=== PATIENT | male | born 1990 | race Caucasian/White ===

== ENCOUNTER → 2020-09-25 | Outpatient (CLI) | payer OTHER, SELFPAY ==
[2013-10-08 16:20] VITALS: BMI 24.7
== END | disposition home or self-care (01) ==
LOC: LABSPEC 14:18
PROVIDERS: Visit Provider Family Medicine
DX: R09.89 Other specified symptoms and signs involving the circulatory and respiratory systems (principal)
CPT/HCPCS: 87635; U0003

== ENCOUNTER → 2020-11-22 09:14 | Outpatient (CLI) | payer OTHER, SELFPAY ==
[2013-10-08 16:20] VITALS: BMI 24.7
[2020-11-22 10:41] LABS: Cholesterol 184 mg/dL (200); High Density Lipoprotein 54 mg/dL; Triglycerides 93 mg/dL; Very Low Density Lipoprotein 19 mg/dL (5-40)
== END ==
PROVIDERS: PCP Family Medicine; Referring Provider Family Medicine; Visit Provider Family Medicine
DX: Z13.220 Encounter for screening for lipoid disorders (principal)
CPT/HCPCS: 36415; 80061

== ENCOUNTER 2022-07-31 10:06 | Outpatient (CLI) | payer OTHER, SELFPAY ==
--- NOTE | 2022-07-31 10:16 | RAD_ITS ---
INDICATION: ABDOMINAL BLOATING EXAMINATION/TECHNIQUE: X-RAY - XR Abdomen Series W/ Chest 1 View COMPARISON: None FINDINGS: --Chest: LINES/DEVICES: None. LUNGS: No consolidation, edema or effusion. No pneumothorax. MEDIASTINUM AND CARDIOVASCULAR STRUCTURES: Cardiac silhouette not enlarged. Central airways and mediastinal contour are unremarkable. BONES AND SOFT TISSUES: No acute findings. --Abdomen: BOWEL GAS PATTERN: Non-obstructive. No bowel or stomach distention. Moderate amount fecal retention. FREE AIR: None visualized. ORGANOMEGALY: Not seen. CALCIFICATIONS: No abnormal calcifications observed. BONES AND SOFT TISSUES: No acute findings. RAD/Acute Abdomen Inc Chest IMPRESSION: No acute abnormalities in the chest or abdomen. Moderate amount of retained stool in the colon. Electronically Signed: Taye Leahy MD at 18:25 EDT ,
[2022-07-31 12:16] LABS: Absolute Lymphocyte Count 1.84 X10^3/uL (0.83-4.51); Absolute Neutrophil Count 3.5 X10^3/uL (2.0-7.7); Basophil# 0.05 X10^3/uL; Basophil% 0.8 % (0-1); Eosinophils% 1.7 % (0-5); Erythrocyte Sedimentation Rate < 1 mm/hr (0-20); Hematocrit 45.7 % (40-54); Hemoglobin 16.2 g/dL (13.0-16.5); Lymphocyte # 1.84 X10^3/ul (0.83-4.51); Lymphocyte % 30.4 % (19-41); Mean Corp Hgb Conc 35.4 g/dL (32-36); Mean Corpuscular Hgb 31.3 pg (27.0-32.0); Mean Corpuscular Volume 88.4 fL (80-94); Mean Platelet Vol. 10.1 fl (6.2-12.0); Monocyte# 0.53 X10^3/uL; Monocyte% 8.7 % (0-10); NRBC Flagged by Analyzer 0 % (0-5); Neutrophil # 3.53 X10^3/uL (2.7-7.7); Neutrophil % 58.2 % (47-70); Platelet Count 264 K/mm3 (150-450); RBC Distribution Width CV 12.3 % (11.6-14.6); RBC Distribution Width SD 40.2 fl (35.1-43.9); Red Blood Count 5.17 M/mm3 (4.6-6.2); White Blood Count 6.1 K/mm3 (4.4-11.0)
[2022-07-31 12:52] LABS: ALB/GLOB Ratio 1.1 RATIO (0.9-2.4); AST(SGOT) 12 U/L (15-37); Alanine Aminotransfer ALT/SGPT 26 U/L (16-61); Albumin, Serum 4.2 g/dL (3.2-5.0); Alkaline Phosphatase 56 U/L (45-117); Anion Gap 5 (5-15); BUN 18 mg/dL (7-18); BUN/Creat Ratio 15.5 RATIO (10-20); Chloride 103 mmol/L (98-107); Creatinine, Serum 1.16 mg/dL (0.70-1.30); EST Glomerular Filtration Rate 76 mL/min (>60); Est Glom Filt Rate - Afr Amer 92 mL/min (>60); Globulin 3.7 g/dL (2.2-4.2); Glucose 90 mg/dL (74-106); Protein, Total 7.9 g/dL (6.4-8.2); Sodium Level 138 mmol/L (136-145); Thyroid Stim Hormone (TSH) 0.89 uIU/mL (0.358-3.74)
[2022-08-03 15:08] LABS: Endomysial Antibody IgA Negative (Negative); Immunoglobulin A 285 mg/dL (90-386)
[2022-08-04 08:56] LABS: Deamidated Gliadin IgA 4 units (0-19); Deamidated Gliadin IgG 7 units (0-19); t-Transglutaminase IgA <2 U/mL (0-3)
[2022-08-08 00:08] LABS: Beef <0.10 kU/L (Class 0); Corn <0.10 kU/L (Class 0); Egg, Whole <0.10 kU/L (Class 0); Milk (Cow) <0.10 kU/L (Class 0); Peanut <0.10 kU/L (Class 0); Pork <0.10 kU/L (Class 0); Soybean <0.10 kU/L (Class 0); Wheat <0.10 kU/L (Class 0)
[2022-08-08 12:16] LABS: Chocolate <0.10 kU/L (Class 0)
== END 2022-07-31 23:59 | disposition home or self-care (01) ==
PROVIDERS: PCP Family Medicine; Referring Provider Family Medicine; Visit Provider Family Medicine
DX: R14.0 Abdominal distension (gaseous) (principal)
CPT/HCPCS: 36415; 74022; 80053; 82784; 83516; 84443; 85025; 85652; 86003; 86005; 86255; 86677

== ENCOUNTER → 2022-08-01 | Outpatient (CLI) | payer OTHER, SELFPAY ==
[2022-08-05 08:55] LABS: Pancreatic Elastase, Fecal 417 (>200)
== END | disposition home or self-care (01) ==
PROVIDERS: PCP Family Medicine; Referring Provider Family Medicine; Visit Provider Family Medicine
DX: R14.0 Abdominal distension (gaseous) (principal); R10.13 Epigastric pain
CPT/HCPCS: 82653

== ENCOUNTER → 2023-03-15 | Outpatient (CLI) | payer OTHER, SELFPAY ==
--- NOTE | 2023-03-15 10:58 | ECHOD_ITS ---
Reason For Study: MVP Procedure This was a 2D Doppler, Color Flow transthoracic echocardiogram. Exam performed in department. Left Ventricle Normal LV size. Left ventricular systolic function is normal. The estimated ejection fraction is 60 %. Normal diastology for age. No regional wall motion abnormalities noted. Right Ventricle Normal RV size. Normal systolic function. Atria Normal left atrium. Normal right atrium. Mitral Valve Mild mitral valve prolapse. Tricuspid Valve Normal tricuspid valve. Aortic Valve Trisinus/trileaflet aortic valve. Pulmonic Valve Normal pulmonic valve. Great Vessels Normal aortic root. The pulmonary artery is normal size. Normal inferior vena cava. Pericardium/Pleural No pericardial effusion. MMode/2D Measurements & Calculations LVIDd: 4.7 cm IVSd: 0.75 cm Ao root diam: 3.4 cm LVIDs: 3.2 cm LVPWd: 0.85 cm LA dimension: 3.1 cm RVDd: 4.3 cm FS: 32.0 % LAV(MOD-bp): 44.4 ml LA A4 area: 15.4 cm2 RA A4 area: 16.5 cm2 LAV(MOD-bp) Indexed: 22.2 ml/m2 LAV(MOD-sp2): 49.6 ml LAV(MOD-sp4): 38.8 ml Time Measurements MV dec time: 0.18 sec Doppler Measurements & Calculations MV E max miles: 90.0 cm/sec Lat Peak E' Miles: 19.5 cm/sec Med Peak E' Miles: 16.5 cm/sec MV A max miles: 47.7 cm/sec E/E' lat: 4.6 E/E' med: 5.4 MV E/A: 1.9 MV V2 max: 100.0 cm/sec MV P1/2t max miles: 100.0 cm/sec Ao V2 max: 121.6 cm/sec MV max P.0 mmHg MV P1/2t: 67.8 msec Ao max P.9 mmHg MV V2 mean: 52.8 cm/sec MV dec slope: 432.2 cm/sec2 Ao V2 mean: 84.4 cm/sec MV mean P.3 mmHg MVA(P1/2t): 3.2 cm2 Ao mean P.2 mmHg MV V2 VTI: 31.6 cm Ao V2 VTI: 28.2 cm AV (velocity ratio): 0.84 LV V1 max: 110.1 cm/sec PA V2 max: 100.6 cm/sec LV V1 max P.9 mmHg PA V2 mean: 67.7 cm/sec LV V1 mean P.6 mmHg LV V1 mean: 74.6 cm/sec LV V1 VTI: 23.6 cm ECHO/Echo Complete Interpretation Summary Normal LV size. Left ventricular systolic function is normal. The estimated ejection fraction is 60 %. Mild mitral valve prolapse. Ordering Physician: Daniel Mejia Referring Physician: Daniel Mejia Performed By: Jeremy Spivey RCS
== END | disposition home or self-care (01) ==
LOC: CVS 10:57
PROVIDERS: PCP Family Medicine; Referring Provider Family Medicine; Visit Provider Family Medicine
DX: I34.1 Nonrheumatic mitral (valve) prolapse (principal)
CPT/HCPCS: 93306

== ENCOUNTER → 2023-10-05 | Outpatient (CLI) | payer OTHER, SELFPAY ==
[2023-10-05 10:36] LABS: Anion Gap 1 (5-15); BUN 17 mg/dL (7-18); BUN/Creat Ratio 15.3 RATIO (10-20); Calcium,Total 8.8 mg/dL (8.5-10.1); Chloride 107 mmol/L (98-107); Cholesterol 181 mg/dL (200); Creatinine, Serum 1.11 mg/dL (0.70-1.30); EST Glomerular Filtration Rate 80 mL/min (>60); Est Glom Filt Rate - Afr Amer 97 mL/min (>60); Glucose 93 mg/dL (74-106); High Density Lipoprotein 56 mg/dL; Magnesium 2.4 mg/dL (1.6-2.6); Potassium 4.4 mmol/L (3.5-5.1); Sodium Level 140 mmol/L (136-145); Thyroid Stim Hormone (TSH) 0.94 uIU/mL (0.358-3.74); Triglycerides 66 mg/dL; Very Low Density Lipoprotein 13 mg/dL (5-40)
== END | disposition home or self-care (01) ==
LOC: MFPLAB 08:48
PROVIDERS: PCP Family Medicine; Visit Provider Family Medicine
DX: Z13.1 Encounter for screening for diabetes mellitus (principal); Z13.220 Encounter for screening for lipoid disorders; R00.2 Palpitations
CPT/HCPCS: 36415; 80048; 80061; 83735; 84443

== ENCOUNTER → 2025-08-29 | Outpatient (CLI) | payer OTHER, SELFPAY ==
[2025-08-29 18:22] LABS: Hematocrit 40.9 % (40-54); Hemoglobin 15.1 g/dL (13.0-16.5); Immature Granulocytes Count 0.010 X10^3/uL (0.0-0.0); Mean Corp Hgb Conc 36.9 g/dL (32-36); Mean Corpuscular Volume 84.5 fL (80-94); Mean Platelet Vol. 10.2 fl (6.2-12.0); NRBC Flagged by Analyzer 0 % (0-5); Platelet Count 243 K/mm3 (150-450); RBC Distribution Width CV 12.1 % (11.6-14.6); RBC Distribution Width SD 36.8 fl (35.1-43.9); Red Blood Count 4.84 M/mm3 (4.6-6.2); White Blood Count 6.1 K/mm3 (4.4-11.0)
[2025-08-29 18:40] LABS: CRP < 3.00 mg/L (0.0-3.0)
[2025-08-31 08:09] LABS: ANTINUCLEAR ANTIBODIES DIRECT Negative (Negative)
== END | disposition home or self-care (01) ==
LOC: MFPLAB 16:15
PROVIDERS: PCP Family Medicine; Visit Provider Family Medicine
DX: I73.00 Raynaud's syndrome without gangrene (principal)
CPT/HCPCS: 36415; 84443; 85025; 85652; 86038; 86140

== ENCOUNTER → 2025-09-10 | Outpatient (CLI) | payer OTHER, SELFPAY ==
[2025-09-11 15:08] LABS: Immunoglobulin A 407 mg/dL (90-386)
[2025-09-13 04:22] LABS: Calprotectin, Stool 26 ug/g (0-120)
== END | disposition home or self-care (01) ==
LOC: LAB 08:56
PROVIDERS: PCP Family Medicine; Referring Provider Student in an Organized Health Care Education/Training Program; Visit Provider Student in an Organized Health Care Education/Training Program
DX: R19.8 Other specified symptoms and signs involving the digestive system and abdomen (principal); R11.2 Nausea with vomiting, unspecified; K21.9 Gastro-esophageal reflux disease without esophagitis; K58.9 Irritable bowel syndrome, unspecified
CPT/HCPCS: 36415; 82784; 83516; 83993; 86255; 87177; 87209; 87329; 87493; 87506

== ENCOUNTER → 2025-09-27 | Outpatient (CLI) | payer OTHER, SELFPAY ==
--- NOTE | 2025-09-27 11:53 | NM_ITS ---
PROCEDURE: GASTRIC EMPTYING STUDY 09/27/2025 REASON FOR EXAM: N/V COMPARISON: None TECHNIQUE: Procedure Code: NMGES Modality: NM Procedure: GASTRIC EMPTYING STUDY The patient ingested a standard meal of sulfur colloid, oatmeal, and water. There was no vomiting postprandially. Anterior and posterior planar images of the upper abdomen were obtained for 1 minute immediately following the meal at 1h, 2h and 4h if more than 10% of the activity persisted within the stomach. Regions of interest were drawn, and a geometric mean was used to calculate a [id number]. RADIOPHARMACEUTICAL: Technetium labeled sulfur colloid DOSE 1mCi FINDINGS: Percent activity remaining in stomach: 1 hour 86 % (normal 37-90%) NM/Gastric Emptying Study IMPRESSION: Delayed gastric emptying. Reading Location: [place] [id number]
== END | disposition home or self-care (01) ==
LOC: NM 11:50
PROVIDERS: PCP Family Medicine; Referring Provider Student in an Organized Health Care Education/Training Program; Visit Provider Student in an Organized Health Care Education/Training Program
DX: R11.2 Nausea with vomiting, unspecified (principal); K21.9 Gastro-esophageal reflux disease without esophagitis
CPT/HCPCS: 78264; A9541

== ENCOUNTER 2025-10-08 05:36 | Day surgery (SDC) | payer OTHER, SELFPAY ==
--- NOTE | 2025-10-04 19:07 | PAT.ANE_ITS ---
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 When Was Last Pacemaker Check QUESTION #4 FULL TEXT: You/Your Family Experience fever (hyperthermia) with Anesthesia Last Oral Intake Last Oral intake: Last Oral Intake NPO since Meds taken in AM with sips of water? 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 hat sweatband puncher Female No 10/04/25 09:30 HX of Motion Sickness Yes 10/04/25 09:30 HX of N/V After Surgery Yes 10/04/25 09:30 Non-Smoker Yes 10/04/25 09:30 Duration of Surgery greater No 10/04/25 09:30 than 60 minutes Number of Risk Factors 3 10/04/25 09:30 PONV Score Moderate Risk 10/04/25 09:30 Height & Weight Height & Weight: Anesthesia: Height & Weight Height 6 ft 1 in 05/05/23 08:31 Respiratory Assessment Respiratory Assessment - helmet hat sweatband puncher: Respiratory Tract Infection Hx - helmet hat sweatband puncher Hx Respiratory Tract Infection No 10/04/25 09:30 STOP Sleep Apnea STOP Sleep Apnea - helmet hat sweatband puncher: STOP Sleep Apnea - helmet hat sweatband puncher Hx Hypertension No 10/04/25 09:30 Hx Sleep Apnea No 10/04/25 09:30 CPAP BIPAP Do you snore loudly (louder No 10/04/25 09:30 than talking or can be heard Do you often feel tired/ No 10/04/25 09:30 fatigued/ sleepy during daytime? Has anyone observed you stop No 10/04/25 09:30 breathing during sleep? STOP Results Negative 10/04/25 09:30 QUESTION #5 FULL TEXT : Do you snore loudly (louder than talking or can be heard through closed doors)? 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 Specify any problems Hx of Preganancy in last 3 N/A 10/04/25 09:30 Months Nurse Filling Out Transfusion VCHRISTIN 10/04/25 09:30 & Questions: Date: 10/04/25 10/04/25 09:30 Time: :31 10/04/25 09:30 Patient unable to answer at this time (ie. confused, unrespo /Reproduction History /Reproductive History - helmet hat sweatband puncher: /Reproductive Hx- helmet hat sweatband puncher Hx Now Gestational Age (in weeks): EDC: Hx Hx Para Hx Section SAB Does the father of the baby or his family experience fever w Father of the baby Malignant Hypertension history comment PFSH Medical History (Updated 10/04/25 @ 09:30 by Leslie Adams) Gastric reflux Non-smoker History of Holter monitoring History of echocardiogram Cardiology follow-up encounter Mitral valve problem Asthma Mild mitral valve prolapse Exercise-induced asthma GERD (gastroesophageal reflux disease) Home Medications ?Medication ?Instructions ?Recorded ?Last Taken ?Type albuterol sulfate 90 mcg/actuation 1 inh inhalation Q6 H 10/04/25 Unknown History breath activated powder inhaler prednisone 50 mg tablet 50 mg PO DAILY 10/04/25 Unkn own History Allergy/AdvReac Type Severity Reaction Status Date / Time No Known Allergies Allergy Verified 10/04/25 09:19 Family History Father Hypertension Grandfather Diabetes CAD (coronary artery disease) Grandfather Heart disease Grandmother Osteoporosis Surgical History (Updated 10/04/25 @ 09:30 by Leslie Adams) History of esophagogastroduodenoscopy (EGD) H/O insertion of LINX reflux management system H/O vasectomy History of repair of hiatal hernia Social History Smoking Status: Never smoker how long ago did patient quit smoking: Age 16 alcohol intake: current alcohol intake frequency: a few times a month substance use type: does not use what type of physical activity do you participate in: walking frequency: 5-6 times per week Audit: Pertinent Findings Pertinent Findings EKG Perinent findings: 05/05/2023. Sinus rhythm. RSR (V1)?nondiagnostic. Echo (EF%) pertinent findings: 03/15/2023. EF 60%. No aortic stenosis noted. Consult pertinent findings: 05/05/2023. Dr. Ramires. 1. Mild mitral valve prolapse-patient is asymptomatic. Continue current medical therapy. Does not need any antibiotic prophylaxis. 2. Abnormal Holter monitor-mildly abnormal Holter with a mild short pause. No changes necessary at this time patient may continue on current medical therapy. Additional pertinent findings: 02/22/2023. 7-day event monitor. Predominant rhythm is normal sinus. Pauses up to 2.8 seconds. AV block?second-degree type I was present. PAC burden less than 0.1%. Recommendation Anesthesia Recommendation Anesthesia recommendation: OPTIMIZED for anesthesia
[2025-10-08] VITALS (7 sets, daily range): BP systolic 117–129; BP diastolic 71–78; PULSE 16–76; RESP 16; TEMP 36.2–36.6; O2SAT 100; BMI 22.9
--- OUTSIDE RECORDS SUMMARY | 2025-10-08 05:39 | XMS RPT_ITS | CCD ---
Author Organization [facility] Care Team Providers Care Environmental Director Name Role Phone BLAKE, MONE Unavailable Unavailable BLAKE, MONE Unavailable Unavailable FARIHA SHIN Unavailable Unavailable Jackie JOSUE, Maximo Shelton Primary Care Provide r Dr. Daniel Mejia Primary Care Provider Dr. Harrison Ramires Attending Provider SOLITARIO KRAFT Attending Unavailab le MAXIMO MEJIA Primary Care Unavail able MAXIMO MEJIAR Admitting Unavail able STEVE SUKHJINDER RAY Referring Unavailable STEVE, SUKHJINDER RAY Attending Unavailable DOMINIC MEJIAER LAUREN Primary Care Unavail able STEVE, SUKHJINDER RAY Attending Unavailable STEVE, SUKHJINDER RAY Admitting Unavailable RANWENDI, BLAIROPHER LAUREN Primary Care Unavail able STEVE, SUKHJINDER RAY Attending Unavailable STEVE, SUKHJINDER RAY Admitting Unavailable RANWENDI, CHRISTOPHER LAUREN Primary Care Unavail able JACKIE, BLAIROPHER LAUREN Primary Care Unavail able STEVE, SUKHJINDER RAY Attending Unavailable [facility] Primary Care Unavail able STEVE, SUKHJINDER RAY Attending Unavailable JACKIE, BLAIROPHER LAUREN Primary Care Unavail able STEVE, SUKHJINDER RAY Attending Unavailable JACKIE, [facility] LAUREN Primary Care Unavail able MATTHEW NICHOLS Attending Unavailable JACKIE, [facility] LAUREN Primary Care Unavail able STEVE, SUKHJINDER RAY Attending Unavailable Dominic Mejiaer Attending [facility]available [facility] Unavailable Medications Current Medications Medication Drug Class(es) Dates Sig (Normalized) Sig (Original) [id number] 200 actuat albuterol 0.09 mg/actuat metered dose inhaler (19 sources) beta2-Adrenergic Agonist Start: 05-05-2023 take 1 puff(s) by inhalation every six hours Albuterol Sulfate Active 2 PUFF INHALATION EVERY 6 HOURS May 04, 2023 11:00pm Start: 11-23-2022 albuterol 90 m cg/actuation inhaler PRN . 11/23/2022 Active diazePAM 2 mg oral tablet (4 sources) Benzodiazepine Start: 02-16-2025 take 1 tablet by mouth twice daily as needed for muscle spasms diazePAM (VALIUM) 2 MG tablet Indications: Esophageal spasm Take 1 (one) tablet (2 mg total) by mouth 2 (two) times a day as needed (esophageal spasms) . 10 tablet 02/16/2025 Active fluticasone propionate 0.05 mg/actuat metered dose nasal spray (1 source) Corticosteroid Start: 05-05-2023 take 1 spray(s) nasal route once daily Fluticasone Propionate Active 1 SPRAY INTRANASAL DAILY May 04, 2023 11:00pm administer into each nostril omeprazole 20 mg delayed release oral capsule (3 sources) Proton Pump Inhibitor take 1 capsule by mouth once daily omeprazole (PRILOSEC) 20 MG capsule Take 1 (one) capsule (20 mg total) by mouth daily . Active predniSONE 50 mg oral tablet (12 sources) Start: 02-08-2025 End: 02-25-2025 take 1 tablet by mouth once daily predniSONE (DELTASONE) 50 MG tablet Take 1 (one) tablet (50 mg total) by mouth daily for 10 days . 10 tablet 02/15/2025 02/25/2025 Active Start: 10-26-2024 End: 11-23-2024 take 1 tablet by mouth once daily predniSONE (DELTASONE) 50 MG tablet Take 1 (one) tablet (50 mg total) by mouth daily . 10 tablet 10/26/2024 11/23/2024 Discontinued (Therapy completed) Start: 08-31-2023 End: 09-10-2023 take 1 tablet by mouth once daily predniSONE (DELTASONE) 50 MG tablet Take 1 (one) tablet (50 mg total) by mouth daily for 10 days . 10 tablet 0 08/31/2023 09/10/2023 Active Start: 08-02-2023 End: 08-21-2023 take 1 tablet by mouth once daily predniSONE (DELTASONE) 50 MG tablet Take 1 (one) tablet (50 mg total) by mouth daily for 10 days . 10 tablet 0 08/11/2023 08/21/2023 Active Start: 01-28-2023 End: 02-07-2023 take 1 tablet by mouth once daily predniSONE (DELTASONE) 50 MG tablet Take 1 (one) tablet (50 mg total) by mouth daily for 10 days . 10 tablet 0 01/28/2023 02/07/2023 Active sucralfate 1000 mg oral tablet (6 sources) Aluminum Complex Start: 02-15-2025 End: 02-15-2026 take 1 tablet by mouth four times daily before mealtime sucralfate (CARAFATE) 1 gram tablet Take 1 (one) tablet (1 g total) by mouth 4 (four) times a day before meals . 120 tablet 11 02/15/2025 02/15/2026 Active Completed/Discontinued Medications Medication Drug Class(es) Dates Sig (Normalized) Sig (Original) dicyclomine hydrochloride 20 mg oral tablet (3 sources) Anticholinergic Start: 10-08-2013 End: 04-29-2023 take 1 tablet by mouth four times daily Dicyclomine (Bentyl) 20 MG tablet Discontinued 20 MG PO 4 TIMES DAILY October 08, 2013 12:00am April 29, 2023 8:41am ondansetron 4 mg disintegrating oral tablet (3 sources) Serotonin-3 Receptor Antagonist Start: 10-08-2013 End: 04-29-2023 take 4 mg by mouth every eight hours as needed Ondansetron Discontinued 4 MG PO EVERY 8 HOURS NEEDED October 08, 2013 12:00am April 29, 2023 8:42am Problems Active Problems Problem Classification Problem Date Documented Da te Episodic/Chronic Asthma (20 sources) Exercise induced bronchospasm; Translations: [Asthma] Onset: 03-19-2017 01-18-2023 Chronic Esophageal disorders (3 sources) Gastro-esophageal reflux disease without esophagitis; Translations: [Cason's esophagus without dysplasia] Onset: 03-19-2017 02-16-2025 Chronic Heart valve disorders (20 sources) Nonrheumatic mitral (valve) prolapse; Translations: [Mitral valve prolapse] Onset: 03-19-2017 01-18-2023 Chronic Other aftercare (2 sources) Surgical follow-up; Translations: [Encounter for surgical aftercare following surgery on the digestive system] 02-27-2025 Episodic Other aftercare (2 sources) Encounter for surgical aftercare following surgery on the digestive system; Translations: [Encounter for surgical aftercare following surgery on the digestive system] Onset: 02-27-2025 Episodic Other gastrointestinal disorders (1 source) Abdominal bloating; Translations: [Abdominal distension (gaseous)] Episodic Other gastrointestinal disorders (18 sources) Dysphagia; Translations: [Dysphagia, unspecified] Onset: 05-13-2023 05-13-2023 Episodic Other gastrointestinal disorders (6 sources) Esophageal dysphagia; Translations: [Other dysphagia] 06-23-2023 Episodic Other gastrointestinal disorders (4 sources) Other dysphagia; Translations: [Other dysphagia] Onset: 01-24-2025 Episodic Other upper respiratory disease (20 sources) Sore throat - chronic; Translations: [Chronic pharyngitis] Onset: 11-18-2022 Chronic Residual codes; unclassified (4 sources) Other specified postprocedural states; Translations: [Other specified postprocedural states] Onset: 01-24-2025 Episodic Past or Other Problems Problem Classification Problem Date Documented Date Episodic/Chronic Abdominal hernia (19 sources) Gastroesophageal reflux disease with hiatal hernia; Translations: [Diaphragmatic hernia without obstruction or gangrene] Onset: 3 01-07-2023 Episodic Anal and rectal conditions (1 source) Other specified diseases of anus and rectum; Translations: [OTHER SPEC DISEASES ANUS AND RECTUM] Onset: Episodic Hemorrhoids (1 source) First degree hemorrhoids; Translations: [FIRST DEGREE HEMORRHOIDS] Onset: 7 Episodic Nausea and vomiting (20 sources) Nausea and vomiting; Translations: [Nausea with vomiting, unspecified] Onset: 3 Episodic Other aftercare (1 source) Other jail (current) drug therapy; Translations: [OTH HEEL SEAM RUBBER CURRENT DRUG THERAPY] Onset: 7 Episodic Other gastrointestinal disorders (2 sources) Constipation, unspecified; Translations: [CONSTIPATION UNSPECIFIED] Onset: 7 Episodic Other gastrointestinal disorders (20 sources) Heartburn; Translations: [Heartburn] Onset: 3 Episodic Other gastrointestinal disorders (20 sources) Excessive belching; Translations: [Eructation] Onset: 3 Episodic Other gastrointestinal disorders (2 sources) Dysphagia, pharyngoesophageal phase; Translations: [Dysphagia, pharyngoesophageal phase] Onset: 3 Episodic Other injuries and conditions due to external causes (17 sources) Motion sickness; Translations: [Motion sickness, initial encounter] Onset: 3 01-18-2023 Episodic Other lower respiratory disease (20 sources) Chronic cough; Translations: [Chronic cough] Onset: 3 Episodic Other screening for suspected conditions (not mental disorders or infectious disease) (1 source) Ambulatory ECG abnormal; Translations: [Abnormal electrocardiogram [ECG] [EKG]] 04-29-2023 Episodic Residual codes; unclassified (14 sources) History of fundoplication; Translations: [Other specified postprocedural states] Onset: 5 11-23-2024 Episodic Screening or history of mental health and substance abuse (1 source) Personal history of nicotine dependence; Translations: [PERSONAL HISTORY OF NICOTINE DEPEND] Onset: 7 Episodic Spondylosis; intervertebral disc disorders; other back problems (1 source) Sciatica, unspecified side; Translations: [SCIATICA UNSPECIFIED SIDE] Onset: 7 Episodic Results Test Name Value Interpretation Reference Range Facility ANTINUCLEAR ANTIBODIES DIRE Ton 08-31-2025 ADILENE,DIRECT Negative Normal Negative [facility] Comment on above: Order Comment: Order Date: 08/29/25 Order Info: [id number] - ADILENE Result Comment: Perf ormed at: [facility] [id number] V Belt Builder: Joaquín Rodriguez PhD, Phone: [phone] Performed By: #### L 100.0100, L582.6985, L101.5430, L3100.6197, L501.2546 #### [facility] [place], [address] CBC W/Diff, Automatedon 11-0 Absolute Lymph 2.08 X10 3/uL Normal 0.83-4.51 [facility] Comment on above: Order Comment: Order Date: 08/29/25 Order Info: [id number] - CBCD Order Info: [id number] - SED Performed By: #### L 100.0100, L501.6710, L101.9900, L3100.5475, L501.9520 #### [facility] [address] [place], [address] Absolute Neut 3.3 X10 3/uL Normal 2.0-7.7 [facility] Comment on above: Order Comment: Order Date: 08/29/25 Order Info: 018- - CBCD Order Info: [id number] - SED Performed By: #### L 100.0100, L501.6710, L101.9900, L3100.5475, L501.9520 #### [facility] [address] [place], [address] Basophils/100 WBC (Bld) 0.7 % Normal 0-1 [facility] Comment on above: Order Comment: Order Date: 08/29/25 Order Info: [id number]- - CBCD Order Info: [id number] - SED Performed By: #### L 100.0100, L501.6710, L101.9900, L3100.5475, L501.9520 #### [facility] [address] [place], [address] Eosinophils/100 WBC (Bld) 1.8 % Normal 0-5 [facility] Comment on above: Order Comment: Order Date: 08/29/25 Order Info: 0184- - CBCD Order Info: [id number] - SED Performed By: #### L 100.0100, L501.6710, L101.9900, L3100.5475, L501.9520 #### [facility] [address] [place], [address] Erythrocyte distribution width (RBC) [Ratio] 12.1 % Normal 11.6-14.6 [facility] Comment on above: Order Comment: Order Date: 08/29/25 Order Info: [id number]- - CBCD Order Info: [id number] - SED Performed By: #### L 100.0100, L501.6710, L101.9900, L3100.5475, L501.9520 #### [facility] [address] [place], [address] Hematocrit (Bld) [Volume fraction] 40.9 % Normal 40-54 [facility] Comment on above: Order Comment: Order Date: 08/29/25 Order Info: [id number] - CBCD Order Info: [id number] - SED Performed By: #### L 100.0100, L501.6710, L101.9900, L3100.5475, L501.9520 #### [facility] [address] [place], [address] Hemoglobin (Bld) [Mass/Vol] 15.1 g/dL Normal 13.0-16.5 [facility] Comment on above: Order Comment: Order Date: 08/29/25 Order Info: 0184- - CBCD Order Info: [id number] - SED Performed By: #### L 100.0100, L501.6710, L101.9900, L3100.5475, L501.9520 #### [facility] [address] [place], [address] IG% 0.200 Normal 0.0-0.9 [facility] Comment on above: Order Comment: Order Date: 08/29/25 Order Info: [id number] - CBCD Order Info: [id number] - SED Result Comment: IG% - Immature Granulocytes (promyelocytes, myelocytes and metamyelocytes) > 1% indicates that a LEFT SHIFT is Present. Performed By: #### L 100.0100, L501.6710, L101.9900, L3100.5475, L501.9520 #### [facility] [address] [place], [address] Lymphocytes/100 WBC (Bld) 34.2 % Normal 19-41 [facility] Comment on above: Order Comment: Order Date: 08/29/25 Order Info: [id number] - CBCD Order Info: [id number] - SED Performed By: #### L 100.0100, L501.6710, L101.9900, L3100.5475, L501.9520 #### [facility] [address] [place], [address] MCH (RBC) [Entitic mass] 31.2 pg Normal 27.0-32.0 [facility] Comment on above: Order Comment: Order Date: 08/29/25 Order Info: [id number] - CBCD Order Info: [id number] - SED Performed By: #### L 100.0100, L501.6710, L101.9900, L3100.5475, L501.9520 #### [facility] [address] [place], [address] MCHC (RBC) [Mass/Vol] 36.9 g/dL High 32-36 [facility] Comment on above: Order Comment: Order Date: 08/29/25 Order Info: [id number] - CBCD Order Info: [id number] - SED Performed By: #### L 100.0100, L501.6710, L101.9900, L3100.5475, L501.9520 #### [facility] [address] [place], [address] MCV (RBC) [Entitic vol] 84.5 fL Normal 80-94 [facility] Comment on above: Order Comment: Order Date: 08/29/25 Order Info: [id number] - CBCD Order Info: [id number] - SED Performed By: #### L 100.0100, L501.6710, L101.9900, L3100.5475, L501.9520 #### [facility] [address] [place], [address] Monocytes/100 WBC (Bld) 8.2 % Normal 0-10 [facility] Comment on above: Order Comment: Order Date: 08/29/25 Order Info: [id number] - CBCD Order Info: [id number] - SED Performed By: #### L 100.0100, L501.6710, L101.9900, L3100.5475, L501.9520 #### [facility] [address] [place], [address] Neutrophils/100 WBC (Bld) 54.9 % Normal 47-70 [facility] Comment on above: Order Comment: Order Date: 08/29/25 Order Info: 018- - CBCD Order Info: [id number] - SED Performed By: #### L 100.0100, L501.6710, L101.9900, L3100.5475, L501.9520 #### [facility] [address] [place], [address] Nucleated RBC (Bld) [#/Vol] 0 10*3/uL Normal 0-5 [facility] Comment on above: Order Comment: Order Date: 08/29/25 Order Info: [id number] - CBCD Order Info: [id number] - SED Performed By: #### L 100.0100, L501.6710, L101.9900, L3100.5475, L501.9520 #### [facility] [address] [facility] [place], [address] Platelet mean volume (Bld) [Entitic vol] 10.2 fL Normal 6.2-12.0 [facility] Comment on above: Order Comment: Order Date: 08/29/25 Order Info: 018- - CBCD Order Info: [id number] - SED Performed By: #### L 100.0100, L501.6710, L101.9900, L3100.5475, L501.9520 #### [facility] [address] [place], [address] Platelets (Bld) [#/Vol] 243 10*3/uL Normal 150-450 [facility] Comment on above: Order Comment: Order Date: 08/29/25 Order Info: 0184- - CBCD Order Info: [id number] - SED Performed By: #### L 100.0100, L501.6710, L101.9900, L3100.5475, L501.9520 #### [facility] [address] [place], [address] RBC (Bld) [#/Vol] 4.84 10*6/uL Normal 4.6-6.2 [facility] Comment on above: Order Comment: Order Date: 08/29/25 Order Info: 0184-1 - CBCD Order Info: [id number] - SED Performed By: #### L 100.0100, L501.6710, L101.9900, L3100.5475, L501.9520 #### [facility] [address] [place], [address] RDW SD 36.8 fl Normal 35.1-43.9 [facility] Comment on above: Order Comment: Order Date: 08/29/25 Order Info: 0184-1 - CBCD Order Info: [id number] - SED Performed By: #### L 100.0100, L501.6710, L101.9900, L3100.5475, L501.9520 #### [facility] [address] [place], [address] WBC (Bld) [#/Vol] 6.1 10*3/uL Normal 4.4-11.0 [facility] Comment on above: Order Comment: Order Date: 08/29/25 Order Info: 0184-1 - CBCD Order Info: [id number] - SED Performed By: #### L 100.0100, L501.6710, L101.9900, L3100.5475, L501.9520 #### [facility] [address] [place], [address] CRPon 08-29-2025 C-REACTIVE PROT < 3.00 Normal 0.0-3.0 [facility] Comment on above: Order Comment: Order Date: 08/29/25 Order Info: [id number] - CRP Order Info: [id number] - TSH Performed By: #### L 100.0100, L501.6710, L101.9900, L3100.5475, L501.9520 #### [facility] [address] [place], [address] Erythrocyte Sed Rateon 08-29 SED RATE < 1 Normal 0-20 [facility] Comment on above: Order Comment: Order Date: 08/29/25 Order Info: [id number] - CBCD Order Info: [id number] - SED Performed By: #### L 100.0100, L501.6710, L101.9900, L3100.5475, L501.9520 #### [facility] [address] [place], [address] Thyroid Stim Hormone (TSH)on 08-29-2025 TSH 1.250 uIU/mL Normal 0.300-4.200 [facility] Comment on above: Order Comment: Order Date: 08/29/25 Order Info: [id number] - CRP Order Info: [id number] - TSH Performed By: #### L 100.0100, L501.6710, L101.9900, L3100.5475, L501.9520 #### [facility] [address] [place], [place], [address] OP NOTEon 02-08-2025 OP NOTE Pre-operative Diagnosis:Pre-Op Diagnosis Codes: * Status post robotic hiatal hernia repair with mesh and LINX sphincter augmentation [Z98.890] * Esophageal dysphagia [R13.19] Post-operative Diagnosis: same Surgeon: Sukhjinder Thorpe MD Gluing Machine Operator Electronic: Matthew Nichols CNP who was present for the entire case and provided critical assistance with the technical aspects of the operation. Procedure and Anesthesia: Procedure(s) and Anesthesia Type: * HIATAL HERNIA REPAIR WITH MESH, EXPLANT OF 15 BEAD LINX SPHINCTER AUGMENTATION DEVICE, IMPLANTATION OF 16 BEAD LINX SPHINCTER AUGMENTATION DEVICE ROBOTIC XI, with Mesh and - General CPT Code: 72329 EBL 5 ml Complications:None Drains: None Dispo: PACU Indication: This is a 34-year-old male with the above-stated preoperative diagnoses. A full preoperative diagnostic evaluation was performed. The patient would like to proceed with surgical treatment. Risks, benefits, and alternatives were discussed with the patient in detail prior to obtaining consent. Procedure: The patient was brought to the operating room and placed in the supine position. Appropriate time out was performed. General anesthesia was administered and endotracheal intubation accomplished without difficulty. The abdomen was prepped and draped in the usual sterile fashion. A second timeout was performed and was physician lead. Half-percent Marcaine was injected to the left of the umbilicus. An 8 mm incision was made and a 8 mm trocar was placed 18 cm below the xiphoid and 3 cm to the left of the midline using Optiview technique. The abdomen was then insufflated to 15 mmHg using CO2. Three 8 mm ports were then placed under direct visualization. These were placed in on line transverse across the abdomen at 8 cm intervals with 2 being placed to the left of the camera port and one placed to the right of the camera port. A 12 mm port was then placed in the right subcostal position under direct visualization. The patient was placed in steep reverse Trendelenburg. The liver retractor was then passed through a stab incision in the subxiphoid region and the left lobe of the liver was retracted cephalad. The robot was then brought to the operative field and docked to the four 8 mm ports using standard technique. The 15 bead LINX device was visible around the esophagus. The anterior portion of the device was visible and had no capsule. The posterior portion of the device was scarred to the crura of the diaphragm and a small recurrent hiatal hernia. I mobilized the Linx device off of the crura of the diaphragm using blunt dissection and monopolar scissors. I then circumferentially freed the device off of the esophagus by opening the capsule using monopolar scissors. I then circumferentially mobilized the esophagus into the mediastinum. The retroesophageal window was fully developed. A Venedocia was placed around the esophagus. The hiatal hernia was then repaired using Phasix ST mesh pledgets and 0 Ethibond suture in a horizontal mattress configuration. The posterior vagus nerve was then identified. The 15 bead device was opened and the abdominal compartment. A 16 bead LINX device was then introduced through the 12 mm port. The device was then placed around the esophagus and brought together using standard technique. The device was then secured in position with a 3-0 Vicryl suture. The sutures were then cut off of the device and removed from the abdominal compartment. The Venedocia was then removed from the abdominal compartment. The LINX device laid tension-free around the esophagus in the appropriate anatomic position. The hiatal hernia repair and mesh reinforcement was intact. All solid organs and hollow viscus were inspected. No injuries were seen. There was excellent hemostasis. The liver retractor was then removed under direct visualization. All ports were then removed and the abdomen was desufflated. The skin incisions were closed with elda and dressings were applied. The needle, sponge, and instrument count were all correct. The patient tolerated the procedure and was returned to the recovery room in stable condition. AUTHENTICATED BY SUKHJINDER THORPE, ON 02/08/2025 12:16:01 Normal [facility] H AND Bhanu 01-09-2025 H AND P [facility] [address] [facility] (11) [facility] [address] [facility] [id number] Telephone Visit [facility] 11/23/2024 Sukhjinder Thorpe MD Provider Location: [facility] [place] Patient Location Senior Occupational Therapist: None Patient Location: Patient's Home Patient: Moe Bolivar Date of : 1990 (34 y.o. male) PCP: Maximo Mejia MD I discussed risks, benefits and alternatives of a telephone visit telemedicine consultation with the patient (and any accompanying persons) including the risks that the patient's personal health details and medical records will be discussed over real-time, synchronous, interactive audio technology, the visit will not be recorded without the express consent of both the provider and the patient, and that there are inherent diagnostic limitations compared to [id number] evaluations. We elected to proceed with the telephone visit telemedicine consultation. Telemedicine visit was done with the patient today using a telephone call. Patient was at home for this visit. The patient identity was verified by confirming the date of and address on file. HPI This is a 34-year-old gentleman who underwent a robotic assisted laparoscopic hiatal hernia repair with mesh and link sphincter augmentation on 01/28/2023. On 06/08/2023 he underwent pneumatic dilation of his LINX. He underwent a second dilation on 08/02/2023. He has had multiple courses of steroids. He continues to have intermittent issues with esophageal dysphagia and the sensation of regurgitation. I obtained an esophagram at his last visit. The results are as follows: FINDINGS: LINX gastroesophageal management system is present in appropriate position. Barium swallow was performed without difficulty. There is delayed emptying of the esophagus with esophago-esophageal reflux with thin barium liquid, marshmallow consistency, and bagel consistency. The marshmallow consistency did not clear from the esophagus for approximately 2 minutes despite multiple esophageal contractions, until it was moved through the gastroesophageal junction by additional thick barium contrast. Bagel consistency also required multiple esophageal contractions and cleared the esophagus in approximately 1 minute after an additional swallow of water. No mucosal abnormalities. No gastroesophageal reflux or hiatal hernia. Fundus of the stomach was unremarkable. IMPRESSION: 1. No gastroesophageal reflux was visualized. 2. LINX gastroesophageal management system is present in appropriate position. 3. There is delayed esophageal emptying with esophago-esophageal reflux. This is most prominent with marshmallow consistency although also occurs with bagel consistency and thin barium contrast, as described above. He just completed another 10-day course of steroids. He said he had very little improvement of symptoms this time. He does indicate that he would prefer to undergo one more pneumatic dilation. We did discuss explant with conversion to partial fundoplication. He would still like to undergo the pneumatic dilation first. He is agreeable to explant with conversion if the repeat dilation fails to resolve his dysphagia and intraesophageal regurgitation. The following portions of the patient's history were reviewed and updated as appropriate: allergies, current medications, past family history, past medical history, past social history, past surgical history, and problem list. Review of Systems Patient's Medications New Prescriptions No medications on file Previous Medications ALBUTEROL 90 MCG/ACTUATION INHALER PRN . OMEPRAZOLE (PRILOSEC) 20 MG CAPSULE Take 1 (one) capsule (20 mg total) by mouth daily . Modified Medications No medications on file Discontinued Medications PREDNISONE (DELTASONE) 50 MG TABLET Take 1 (one) tablet (50 mg total) by mouth daily . Assessment/Plan: Assessment Diagnoses and all orders for this visit: Esophageal dysphagia Status post robotic hiatal hernia repair with mesh and LINX sphincter augmentation Schedule esophagoscopy with pneumatic dilation using 30 mm balloon I have spent 20 minutes with the patient reviewing the HPI and Plan of Care. Sukhjinder Thorpe MD FACS AUTHENTICATED BY SUKHJINDER THORPE, ON 01/09/2025 08:24:01 [facility] XR OR FLUOROSCOPY TIMEon XR OR FLUOROSCOPY TIME This is an auto finalized result. Please refer to patient chart for further information. further information. further information. [facility] Comment on above: Order Comment: Injur y/Trauma or Illness?:Illness/Other How long have you had these symptoms (acute/chronic)?:Acute Reason for exam?:pneumatic dilation Type of Exam?:Initial Additional signs and symptoms?:. Fluoro time in minutes:0.29 17.2 seconds Fluoro dose in mGy?:2.49 XR ESOPHAGUS/SWALLOW STUDYon 10-26-2024 XR ESOPHAGUS/SWALLOW STUDY EXAMINATION: XR ESOPHAGUS/SWALLOW STUDY HISTORY: ORDERING SYSTEM PROVIDED HISTORY: persistant esophageal dysphagia; s/p Linx, TECHNOLOGIST PROVIDED HISTORY: Illness/Other Reason for exam: persistant esophageal dysphagia; s/p Linx, Pharyngoesophageal dysphagia Encounter Type: Initial Additional signs and symptoms: persistant esophageal dysphagia; s/p Linx, Pharyngoesophageal dysphagia Fluoro dose in mGy: 92.84 ORDERING SYSTEM PROVIDED DIAGNOSIS CODES: R13.14 Pharyngoesophageal dysphagia COMPARISON: Esophagram dated 05/12/2023 TECHNIQUE: RADIATION EXPOSURE: Fluoro dose in Ka,r mGy: 92.84 Barium esophagram was performed according to a single and double-contrast technique in the upright, supine, and prone positions. Evaluation with marshmallow and bagel ingestion was performed as requested. FINDINGS: LINX gastroesophageal management system is present in appropriate position. Barium swallow was performed without difficulty. There is delayed emptying of the esophagus with esophago-esophageal reflux with thin barium liquid, marshmallow consistency, and bagel consistency. The marshmallow consistency did not clear from the esophagus for approximately 2 minutes despite multiple esophageal contractions, until it was moved through the gastroesophageal junction by additional thick barium contrast. Bagel consistency also required multiple esophageal contractions and cleared the esophagus in approximately 1 minute after an additional swallow of water. No mucosal abnormalities. No gastroesophageal reflux or hiatal hernia. Fundus of the stomach was unremarkable. IMPRESSION: 1. No gastroesophageal reflux was visualized. 2. LINX gastroesophageal management system is present in appropriate position. 3. There is delayed esophageal emptying with esophago-esophageal reflux. This is most prominent with marshmallow consistency although also occurs with bagel consistency and thin barium contrast, as described above. [facility]/ Workstation ID: [id number] Dictated by: YARITZA CANALES on WedOct 26, 2024 2:50:35 PM EST Transcribed by: ANSELMO SHORE on WedOct 26, 2024 3:13:29 PM EST Finalized by: YARITZA CANALES on WedOct 26, 2024 4:09:09 PM EST Normal [facility] Comment on above: Order Comment: Wang mallow and bagel Injury/Trauma or Illness?:Illness/Other How long have you had these symptoms (acute/chronic)?:Acute Reason for exam?:persistant esophageal dysphagia; s/p Linx, Pharyngoesophageal dysphagia Type of Exam?:Initial Additional signs and symptoms?:persistant esophageal dysphagia; s/p Linx, Pharyngoesophageal dysphagia Fluoro time in minutes:3.02 three minutes two seconds Fluoro dose in mGy?:92.84 Basophil percentageOrdered B y: Daniel Mejia on 10-05-2023 Chloride [Moles/Vol] 107 mmol/L 98-107 [facility] Cholesterol [Mass/Vol] 181 mg/dL <200 [facility] Comment on above: <200 mg/dL Desirable 200-240 mg/dL Borderline >240 mg/dL High Risk Glucose [Mass/Vol] 93 mg/dL 74-106 [facility] Potassium [Moles/Vol] 4.4 mmol/L 3.5-5.1 [facility] Sodium [Moles/Vol] 140 mmol/L 136-145 [facility] Triglyceride [Mass/Vol] 66 mg/dL <199 [facility] Comment on above: The drugs N-Acetylcy steine and Metamizole may falsely depress this assay.Serum Triglycerides Reference Interval Normal <150 mg/dL Borderline high 150 - 199 mg/dL High 200 - 499 mg/dL Very High > or = 500 mg/dL Laboratory - Chemistry and C hemistry - challengeOrdered By: Daniel Mejia on 10-05-2023 CO2 [Moles/Vol] 32.0 mmol/L 21.0-32.0 [facility] Magnesium [Mass/Vol] 2.4 mg/dL 1.6-2.6 [facility] Urea nitrogen/Creatinine [Mass ratio] 15.3 mg/mg 10-20 [facility] No Panel InformationOrdered By: Daniel Mejia on 10-05-2023 Estimated GFR (MDRD) Amer 97 mL/min >60 [facility] Comment on above: GFR Calc Estimated GFR (MDRD) Non-Af Amer 80 mL/min >60 [facility] Comment on above: Non- GFR Calc Thyroid Stimulating Hormone (TSH) 0.94 uIU/mL 0.358-3.74 [facility] Serum or plasma calcium elizabeth urement (mass/volume)Ordered By: Daniel Mejia on 10-05-2023 Calcium [Mass/Vol] 8.8 mg/dL 8.5-10.1 [facility] Serum or plasma cholesterol in HDL measurement (mass/volume)Ordered By: Daniel Mejia on 10-05-2023 Cholesterol in HDL [Mass/Vol] 56 mg/dL >40 [facility] Comment on above: The drugs N-Acetylcy steine and Metamizole may falsely depress this assay. Reference Range HDL <40 mg/dL Low HDL Cholesterol HDL >or= 60 mg/dL High HDL Cholesterol Serum or plasma cholesterol in VLDL measurement (mass/volume)Ordered By: Daniel Mejia on 10-05-2023 Cholesterol in VLDL [Mass/Vol] 13 mg/dL 5-40 [facility] Serum or plasma creatinine m easurement (mass/volume)Ordered By: Daniel Mejia on 10-05-2023 Creatinine [Mass/Vol] 1.11 mg/dL 0.70-1.30 [facility] Comment on above: The validity of the calculated GFR & GFRAA in patients over 70 years has not been determined. Clinical correlation is essential. Serum or plasma low density lipoprotein (LDL) cholesterol measurement (mass/volume)Ordered By: Daniel Mejia on 10-05-2023 Cholesterol in LDL [Mass/Vol] 112 mg/dL 0-130 [facility] Serum or plasma urea nitroge n measurement (mass/volume)Ordered By: Daniel Mejia on 10-05-2023 Urea nitrogen [Mass/Vol] 17 mg/dL 7-18 [facility] Thin prep Papanicolaou smear with manual screeningOrdered By: Daniel Mejia on 10-05-2023 Thin prep Papanicolaou smear with manual screening 1 5-15 [facility] No Panel Informationon 08-01 Stool Pancreatic Elastase 417 >200 [facility] Work Phone: Comment on above: Result Units: ug Lexy st./g Severe Pancreatic Insufficiency: <100 Moderate Pancreatic Insufficiency: 100 - 200 Normal: >200Performed at: - [facility] [address] [id number] Director: Marc Geller MD, Phone: [phone] Absolute lymphocyte counton 07-31-2022 Lymphocytes Auto (Unsp spec) [#/Vol] 1.84 10*3/uL 0.83-4.51 [facility] Work Phone: Basophil percentageon 2021 Basophils/100 WBC (Bld) 0.8 % 0-1 [facility] Work Phone: [phone] Bilirubin [Mass/Vol] 0.70 mg/dL 0.20-1.00 [facility] Work Phone: [phone] Comment on above: For patients on eltr ombopag therapy, use of Dimension [place] TBIL is not recommended. Chloride [Moles/Vol] 103 mmol/L 98-107 [facility] Work Phone: [phone] Eosinophils/100 WBC (Bld) 1.7 % 0-5 [facility] Work Phone: [phone] Glucose [Mass/Vol] 90 mg/dL 74-106 [facility] Work Phone: [phone] Neutrophils (Bld) [#/Vol] 3.5 10*3/uL 2.0-7.7 [facility] Work Phone: [phone] Neutrophils/100 WBC (Bld) 58.2 % 47-70 [facility] Work Phone: [phone] Potassium [Moles/Vol] 4.0 mmol/L 3.5-5.1 [facility] Work Phone: Protein [Mass/Vol] 7.9 g/dL 6.4-8.2 [facility] Work Phone: Sodium [Moles/Vol] 138 mmol/L 136-145 [facility] Work Phone: WBC (Bld) [#/Vol] 6.1 10*3/uL 4.4-11.0 [facility] Work Phone: Blood erythrocytes count (nu mber/volume)on 07-31-2022 RBC (Bld) [#/Vol] 5.17 10*6/uL 4.6-6.2 [facility] Work [facility]: Blood hemoglobin measurement (mass/volume)on 07-31-2022 Hemoglobin (Bld) [Mass/Vol] 16.2 g/dL 13.0-16.5 [facility] Work Phone: Blood lymphocytes/100 leukoc yteson 07-31-2022 Lymphocytes/100 WBC (Bld) 30.4 % 19-41 [facility] Work Phone: Blood monocytes/100 leukocyt eson 07-31-2022 Monocytes/100 WBC (Bld) 8.7 % 0-10 [facility] Work Phone: Blood platelet mean volumeon 07-31-2022 Platelet mean volume (Bld) [Entitic vol] 10.1 fL 6.2-12.0 [facility] Work Phone: [phone] Determination of erythrocyte mean corpuscular volume (MCV)on 07-31-2022 MCV (RBC) [Entitic vol] 88.4 fL 80-94 [facility] Work Phone: Erythrocyte sedimentation ra joann 07-31-2022 ESR (Bld) [Velocity] mm/h 0-20 [facility] Work Phone: Hematocrit Auto (Bld) [Volum e fraction]on 07-31-2022 Hematocrit (Bld) [Volume fraction] 45.7 % 40-54 [facility] Work Phone: Laboratory - Chemistry and C hemistry - challengeon 07-31-2022 ALP [Catalytic activity/Vol] 56 U/L 45-117 [facility] Work Phone: [phone] ALT [Catalytic activity/Vol] 26 U/L 16-61 [facility] Work Phone: [phone] CO2 [Moles/Vol] 30.0 mmol/L 21.0-32.0 [facility] Work Phone: [phone] Globulin (S) [Mass/Vol] 3.7 g/dL 2.2-4.2 [facility] Work Phone: Urea nitrogen/Creatinine [Mass ratio] 15.5 mg/mg 10-20 [facility] Work Phone: Laboratory - Hematology and Cell countson 07-31-2022 Erythrocyte distribution width (RBC) [Entitic vol] 40.2 fL 35.1-43.9 [facility] Work Phone: Erythrocyte distribution width (RBC) [Ratio] 12.3 % 11.6-14.6 [facility] Work Phone: Immature granulocytes/100 WBC (Bld) 0.200 % 0.0-0.9 [facility] Work Phone: Comment on above: IG% - Immature Granu locytes (promyelocytes, myelocytes and metamyelocytes) > 1% indicates that a LEFT SHIFT is Present. MCH (RBC) [Entitic mass] 31.3 pg 27.0-32.0 [facility] Work Phone: Nucleated RBC/100 WBC (Bld) [Ratio] 0 % 0-5 [facility] Work Phone: MCHC Auto (RBC) [Mass/Vol]on 07-31-2022 MCHC (RBC) [Mass/Vol] 35.4 g/dL 32-36 [facility] Work Phone: No Panel Informationon 07-31 Anti-Gliadin IgA Antibody 4 units 0-19 [facility] Work Phone: Comment on above: Negative 0 - 19 Weak Positive 20 - 30 Moderate to Strong Positive >30 Anti-Gliadin IgG Antibody 7 units 0-19 [facility] Work Phone: Comment on above: Negative 0 - 19 Weak Positive 20 - 30 Moderate to Strong Positive >30 Endomysial IgA Antibody Negative Negative [facility] Work Phone: Estimated GFR (MDRD) Amer 92 mL/min >60 [facility] Work Phone: Comment on above: GFR Calc Estimated GFR (MDRD) Non-Af Amer 76 mL/min >60 [facility] Work Phone: Comment on above: Non- GFR Calc Thyroid Stimulating Hormone (TSH) 0.89 uIU/mL 0.358-3.74 [facility] Work Phone: Tissue Transglutaminase IgG Ab 2 U/mL 0-5 [facility] Work Phone: Comment on above: Negative 0 - 5 Weak Positive 6 - 9 Positive >9 Platelets bldon 07-31-2022 Platelets (Bld) [#/Vol] 264 10*3/uL 150-450 [facility] Work Phone: Serum Helicobacter pylori Ig G antibody assay (units/volume)on 07-31-2022 H. pylori IgG Qn (S) 0.20 0.00-0.79 [facility] Work Phone: Comment on above: Result Units: Index Value Negative <0.80 Equivocal 0.80 - 0.89 Positive >0.89Performed at: [facility] [id number] Director: Joaquín Rodriguez PhD, Phone: [phone] Serum IgA measurement (units /volume)on 07-31-2022 IgA Qn (S) 285 mg/dL 90-386 [facility] Work Phone: Serum or plasma albumin elizabeth urement (mass/volume)on 07-31-2022 Albumin [Mass/Vol] 4.2 g/dL 3.2-5.0 [facility] Work Phone: Serum or plasma albumin/glob ulin mass ratioon 07-31-2022 Albumin/Globulin [Mass ratio] 1.1 {ratio} 0.9-2.4 [facility] Work Phone: Serum or plasma calcium elizabeth urement (mass/volume)on 07-31-2022 Calcium [Mass/Vol] 9.0 mg/dL 8.5-10.1 [facility] Work Phone: Serum or plasma creatinine m easurement (mass/volume)on 07-31-2022 Creatinine [Mass/Vol] 1.16 mg/dL 0.70-1.30 [facility] Work Phone: Comment on above: The validity of the calculated GFR & GFRAA in patients over 70 years has not been determined. Clinical correlation is essential. Serum or plasma urea nitroge n measurement (mass/volume)on 07-31-2022 Urea nitrogen [Mass/Vol] 18 mg/dL 7-18 [facility] Work Phone: Serum tissue transglutaminas e IgA antibody assay (units/volume)on 07-31-2022 tTG IgA Qn (S) <2 U/mL 0-3 [facility] Work Phone: Comment on above: Negative 0 - 3 Weak Positive 4 - 10 Positive >10 Tissue Transglutaminase (tTG) has been identified as the endomysial antigen. Studies have demonstr- ated that endomysial IgA antibodies have over 99% specificity for gluten sensitive enteropathy. Thin prep Papanicolaou smear with manual screeningon 07-31-2022 Thin prep Papanicolaou smear with manual screening 12 U/L 15-37 [facility] Work Phone: Thin prep Papanicolaou smear with manual screening 5 5-15 [facility] Work Phone: CT CARDIAC SCORINGon 04-25 CT CARDIAC SCORING Patient Name: MOE BOLIVAR STUDY: CT CARDIAC SCORING; 05/21/2020 3:30 pm INDICATION: Family history of ischemic heart disease and other diseases of the circulatory system. COMPARISON: None. ACCESSION NUMBER(S): [id number] ORDERING CLINICIAN: FARIHA GARCIA TECHNIQUE: Using prospective ECG gating, CT scan of the coronary arteries was performed without intravenous contrast. Coronary calcium scoring was performed according to the method of Agatston. FINDINGS: The score and distribution of calcium in the coronary arteries is as follows: LM 0, LAD 0, LCx 0, RCA 0, Total 0 The visualized mid/lower ascending thoracic aorta measures 2.6 cm in diameter. The heart is normal in size. No pericardial effusion is present. Main pulmonary artery is normal in caliber. No gross evidence of mediastinal or hilar lymphadenopathy or masses is identified. The visualized esophagus is unremarkable. The visualized segments of the lungs are normally expanded. The visualized subdiaphragmatic structures appear intact. IMPRESSION: 1. Coronary artery calcium score of 0*. *Coronary Artery Calcium Gated and Nongated Agatston score Score Risk 0 Very low 1-99 Mildly increased 100-299 Moderately increased >300 Moderate to severely increased Lucius et al. JCCT 2016 (http://dx.doi.org/10. 1016/j.[email or web address] 3) JACOBSON 10-Year CHD Risk with Coronary Artery Calcification can be calcuated using link below [email or web address] Kenna et al. JACC 2015 (http://dx.doi.org/10. 1016/j.j [email or web address]) Electronically signed by: LORENE FLAHERTY MD [facility] Vital Signs Date Time Vital Sign Value Performing Clinician Rubens carreno 03-28-2025 08:30-0400 Body height 185.4 cm Sukhjinder Thorpe MD Work Phone: [facility] 03-28-2025 08:30-0400 Body mass index (BMI) [Ratio] 22.92 kg/m2 Sukhjinder Thorpe MD Work Phone: [facility] 03-28-2025 08:30-0400 Body weight 78.79 kg Sukhjinder Thorpe MD Work Phone: [facility] 03-28-2025 08:30-0400 Diastolic blood pressure 78 mm[Hg] Sukhjinder Thorpe MD Work Phone: [facility] 03-28-2025 08:30-0400 Heart rate 68 /min Sukhjinder Thorpe MD Work Phone: [facility] 03-28-2025 08:30-0400 SaO2% (BldA) [Mass fraction] 98 % Sukhjinder Thorpe MD Work Phone: [facility] 03-28-2025 08:30-0400 Systolic blood pressure 118 mm[Hg] Sukhjinder Thorpe MD Work Phone: [facility] 02-27-2025 08:49-0400 Body height 185.4 cm Matthew Lafon [employer]CTOR [employer]ING Work Phone: [facility] 02-27-2025 08:49-0400 Body mass index (BMI) [Ratio] 22.71 kg/m2 Matthew Lafon [employer] Work Phone: [facility] 02-27-2025 08:49-0400 Body weight 78.06 kg Matthew Lafon [employer] Work Phone: [facility] 02-27-2025 08:49-0400 Diastolic blood pressure 90 mm[Hg] Matthew Lafon [employer] Work Phone: [facility] 02-27-2025 08:49-0400 Heart rate 70 /min Matthew Lafon [employer] Work Phone: [facility] 02-27-2025 08:49-0400 SaO2% (BldA) [Mass fraction] 97 % Matthew Lafon [employer] Work Phone: [facility] 02-27-2025 08:49-0400 Systolic blood pressure 136 mm[Hg] Matthew Lafon [employer] Work Phone: [facility] 01-24-2025 15:51-0400 Body height 185.4 cm Sukhjinder Thorpe MD Work Phone: [facility] 01-24-2025 15:51-0400 Body mass index (BMI) [Ratio] 23.22 kg/m2 Sukhjinder Thorpe MD Work Phone: [facility] 01-24-2025 15:51-0400 Body weight 79.83 kg Sukhjinder Thorpe MD Work Phone: [facility] 01-24-2025 15:51-0400 Diastolic blood pressure 83 mm[Hg] Sukhjinder Thorpe MD Work Phone: [facility] 01-24-2025 15:51-0400 Heart rate 68 /min Sukhjinder Thorpe MD Work Phone: [facility] 01-24-2025 15:51-0400 SaO2% (BldA) [Mass fraction] 99 % Sukhjinder Thorpe MD Work Phone: [facility] 01-24-2025 15:51-0400 Systolic blood pressure 138 mm[Hg] Sukhjinder Thorpe MD Work Phone: [facility] 10-26-2024 13:59-0500 Body height 185.4 cm Sukhjinder Thorpe MD Work Phone: [facility] 10-26-2024 13:59-0500 Body mass index (BMI) [Ratio] 22.88 kg/m2 Sukhjinder Thorpe MD Work Phone: [facility] 10-26-2024 13:59-0500 Body weight 78.65 kg Sukhjinder Thorpe MD Work Phone: [facility] 10-26-2024 13:59-0500 Diastolic blood pressure 79 mm[Hg] Sukhjinder Thorpe MD Work Phone: [facility] 10-26-2024 13:59-0500 Heart rate 62 /min Sukhjinder Thorpe MD Work Phone: [facility] 10-26-2024 13:59-0500 SaO2% (BldA) [Mass fraction] 99 % Sukhjinder Thorpe MD Work Phone: [facility] 10-26-2024 13:59-0500 Systolic blood pressure 124 mm[Hg] Sukhjinder Thorpe MD Work Phone: [facility] 08-19-2023 16:05-0400 Body height 185.4 cm Sukhjinder Thorpe MD Work Phone: [facility] 08-19-2023 16:05-0400 Body mass index (BMI) [Ratio] 22.2 kg/m2 Sukhjinder Thorpe MD Work Phone: [facility] 08-19-2023 16:05-0400 Body weight 76.34 kg Sukhjinder Thorpe MD Work Phone: [facility] 08-19-2023 16:05-0400 Diastolic blood pressure 85 mm[Hg] Sukhjinder Thorpe MD Work Phone: [facility] 08-19-2023 16:05-0400 Heart rate 86 /min Sukhjinder Thorpe MD Work Phone: [facility] 08-19-2023 16:05-0400 SaO2% (BldA) [Mass fraction] 94 % Sukhjinder Thorpe MD Work Phone: [facility] 08-19-2023 16:05-0400 Systolic blood pressure 144 mm[Hg] Sukhjinder Thorpe MD Work Phone: [facility] 07-21-2023 09:58-0400 Body height 185.4 cm Sukhjinder Thorpe MD Work Phone: [facility] 07-21-2023 09:58-0400 Body mass index (BMI) [Ratio] 21.9 kg/m2 Sukhjinder Thorpe MD Work Phone: [facility] 07-21-2023 09:58-0400 Body weight 75.3 kg Sukhjinder Thorpe MD Work Phone: [facility] 07-21-2023 09:58-0400 Diastolic blood pressure 82 mm[Hg] Sukhjinder Thorpe MD Work Phone: [facility] 07-21-2023 09:58-0400 Heart rate 69 /min Sukhjinder Thorpe MD Work Phone: [facility] 07-21-2023 09:58-0400 SaO2% (BldA) [Mass fraction] 96 % Sukhjinder Thorpe MD Work Phone: [facility] 07-21-2023 09:58-0400 Systolic blood pressure 123 mm[Hg] Sukhjinder Thorpe MD Work Phone: [facility] 06-23-2023 08:16-0400 Body height 185.4 cm Sukhjinder Thorpe MD Work Phone: [facility] 06-23-2023 08:16-0400 Body mass index (BMI) [Ratio] 22.16 kg/m2 Sukhjinder Thorpe MD Work Phone: [facility] 06-23-2023 08:16-0400 Body weight 76.2 kg Sukhjinder Thorpe MD Work Phone: [facility] 06-23-2023 08:16-0400 Diastolic blood pressure 80 mm[Hg] Sukhjinder Thorpe MD Work Phone: [facility] 06-23-2023 08:16-0400 Heart rate 68 /min Sukhjinder Thorpe MD Work Phone: [facility] 06-23-2023 08:16-0400 SaO2% (BldA) [Mass fraction] 98 % Sukhjinder Thorpe MD Work Phone: [facility] 06-23-2023 08:16-0400 Systolic blood pressure 124 mm[Hg] Sukhjinder Thorpe MD Work Phone: [facility] 01-06-2023 10:25-0400 Body height 189.2 cm Sukhjinder Thorpe MD Work Phone: [facility] 01-06-2023 10:25-0400 Body mass index (BMI) [Ratio] 22.55 kg/m2 Sukhjinder Thorpe MD Work Phone: [facility] 01-06-2023 10:25-0400 Body weight 80.74 kg Sukhjinder Thorpe MD Work Phone: [facility] 01-06-2023 10:25-0400 Diastolic blood pressure 78 mm[Hg] Sukhjinder Thorpe MD Work Phone: [facility] 01-06-2023 10:25-0400 Heart rate 70 /min Sukhjinder Thorpe MD Work Phone: [facility] 01-06-2023 10:25-0400 SaO2% (BldA) [Mass fraction] 96 % Sukhjinder Thorpe MD Work Phone: [facility] 01-06-2023 10:25-0400 Systolic blood pressure 125 mm[Hg] Sukhjinder Thorpe MD Work Phone: [facility] 11-18-2022 09:52-0500 Body height 189.2 cm Matthew Nichols [employer] Work Phone: [facility] 11-18-2022 09:52-0500 Body mass index (BMI) [Ratio] 22.52 kg/m2 Matthew Lafon [employer] Work Phone: [facility] 11-18-2022 09:52-0500 Body weight 80.65 kg Matthew Lafbrooke [employer] Work Phone: [facility] 11-18-2022 09:52-0500 Diastolic blood pressure 79 mm[Hg] Matthew Lafon [employer] Work Phone: [facility] 11-18-2022 09:52-0500 Heart rate 83 /min Matthew Lafon INSTRUCTOR WEAVING Work Phone: [facility] 11-18-2022 09:52-0500 SaO2% (BldA) [Mass fraction] 97 % Matthew Lafbrooke INSTRUCTOR WEAVING Work Phone: [facility] 11-18-2022 09:52-0500 Systolic blood pressure 126 mm[Hg] Matthew Lafon INSTRUCTOR WEAVING Work Phone: [facility] 07-31-2022 10:06-0400 Body height 185.42 cm [facility] Work Phone: Encounters Encounter Date Encounter Type Care Provider Facility Start: 08-29-2025 ambulatory Maximo Art lity:[facility] Start: 08-17-2025 End: 08-17-2025 Orders Only Ene Betancourt RN [facility] Comment on above: Pharyngoesophageal d ysphagia (Primary Dx) Start: 03-28-2025 End: 03-28-2025 Postop follow up visit related to original px Sukhjinder Thorpe MD Work Phone: [facility] Comment on above: Postoperative follow -up (Primary Dx) Start: 03-28-2025 End: 03-28-2025 ambulatory [facility] Start: 02-27-2025 End: 02-27-2025 Postop follow up visit related to original px Matthew Nichols INSTRUCTOR WEAVING Work Phone: [facility] Comment on above: Encounter for surgic al aftercare following surgery of digestive system (Primary Dx) Start: 02-27-2025 End: 02-27-2025 ambulatory [facility] Start: 02-16-2025 End: 02-16-2025 Orders Only Matthew Nichols INSTRUCTOR WEAVING Work Phone: [facility] Comment on above: Esophageal spasm (Pr imary Dx) Start: 02-15-2025 End: 02-15-2025 Orders Only Matthew Nichols INSTRUCTOR WEAVING Work Phone: [facility] Start: 02-08-2025 End: 02-08-2025 ambulatory [facility] Start: 02-01-2025 End: 02-05-2025 ambulatory [facility] Start: 02-01-2025 End: 02-05-2025 Encounter for other preprocedural examination [facility] Start: 01-24-2025 End: 01-24-2025 Office outpatient visit 25 minutes Sukhjinder Thorpe MD Work Phone: [facility] Comment on above: Status post robotic hiatal hernia repair with mesh and LINX sphincter augmentation (Primary Dx); Esophageal dysphagia Start: 01-24-2025 End: 01-28-2025 ambulatory [facility] Start: 01-09-2025 End: 01-09-2025 ambulatory [facility] Start: 11-23-2024 End: 11-23-2024 Phys/qhp telephone evaluation 11-20 min Sukhjinder Thorpe MD Work Phone: [facility] Comment on above: Esophageal dysphagia (Primary Dx); Status post robotic hiatal hernia repair with mesh and LINX sphincter augmentation; Status post laparoscopic Marya fundoplication Start: 11-23-2024 End: 11-23-2024 ambulatory [facility] Start: 10-26-2024 End: 10-26-2024 Office outpatient visit 15 minutes Sukhjinder Thorpe MD Work Phone: [facility] Comment on above: Heartburn (Primary D x); Regurgitation of food Start: 10-26-2024 End: 10-26-2024 ambulatory [facility] Start: 10-26-2024 End: 10-26-2024 ambulatory SUKHJINDER MARCOS THORPE [facility] Start: 10-05-2023 End: 10-05-2023 ambulatory [facility] Work Phone: Start: 10-05-2023 End: 10-05-2023 Patient encounter procedure [facility] Start: 08-31-2023 Orders Only Matthew Gregory INSTRUCTOR WEAVING Work Phone: [facility] Start: 08-19-2023 End: 08-19-2023 Office outpatient visit 15 minutes Sukhjinder Thorpe MD Work Phone: [facility] Comment on above: Esophageal dysphagia (Primary Dx) Start: 08-11-2023 Orders Only Matthew Gregory INSTRUCTOR WEAVING Work Phone: [facility] Start: 07-21-2023 End: 07-21-2023 Office outpatient visit 25 minutes Sukhjinder Thorpe MD Work Phone: [facility] Comment on above: Esophageal dysphagia (Primary Dx) Start: 06-23-2023 End: 06-23-2023 Office outpatient visit 15 minutes Sukhjinder Thorpe MD Work Phone: [facility] Comment on above: Esophageal dysphagia (Primary Dx) Start: 05-13-2023 Admission to [facility] Matthew Nichols INSTRUCTOR WEAVING Work Phone: [facility] Comment on above: Dysphagia, unspecifi ed type (Primary Dx) Start: 03-15-2023 Non-patient / Non-visit Dr. Marquis Mejia Work Phone: [facility] Start: 03-15-2023 End: 03-15-[address] Daniel Mejia Work Phone: [facility] Work Phone: Start: 03-15-2023 End: 03-15-[address] Daniel Mejia Work Phone: [facility] Start: 01-28-2023 Orders Only Matthew Gregory INSTRUCTOR WEAVING Work Phone: [facility] Start: 01-18-2023 Encounter for other preprocedural examination [facility] Start: 01-18-2023 Preprocedural examin ation done Matthew Nichols INSTRUCTOR WEAVING Work Phone: [facility] Start: 01-06-2023 End: 01-06-2023 Office outpatient visit 25 minutes Sukhjinder Thorpe MD Work Phone: [facility] Comment on above: Hiatal hernia with G ERD without esophagitis (Primary Dx) Start: 11-18-2022 Admission to [facility] Matthew Nichols 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 WEAVING Work Phone: [facility] Comment on above: Heartburn (Primary D x); Gaseous regurgitation; Nausea and vomiting, unspecified vomiting type; Chronic cough; Chronic sore throat Start: 11-18-2022 End: 11-18-2022 Office outpatient new 45 minutes Matthew Nichols INSTRUCTOR WEAVING Work Phone: [facility] Comment on above: Bloating (Primary Dx ); Heartburn; Gaseous regurgitation; Nausea and vomiting, unspecified vomiting type; Chronic sore throat; Chronic cough Start: 08-01-2022 Patient encounter procedure [facility] , Specimen Start: 07-31-2022 End: 07-31-2022 ambulatory [facility] Work Phone: Start: 07-31-2022 End: 07-31-2022 Patient encounter procedure [facility] Start: 03-10-2017 End: 03-10-2017 Ambulatory [facility] Facility:[facility] Procedures Date Procedure Procedure Detail Performing Clinician Start: 11-23-2024 Follow-up visit Follow-up SUKHJINDER THORPE Start: 07-31-2022 Diagnostic radiograp hy of abdomen Plan of Treatment Date Care Activity Detail Author Start: 02-18-2063 RSV Vaccines (1 - 1-dose 75+ series) RSV Vaccines (1 - 1-dose 75+ series) [facility] Start: 02-18-2038 Administration of herpes zoster vaccine Zoster Vaccines (1 of 2) [facility] Start: 06-24-2026 Tetanus vaccination Tetanus: Every 10yrs [facility] Start: 06-24-2026 Vaccination for diphtheria, pertussis, and tetanus Tetanus/Diphtheria/Pertussis (3 - Td or Tdap) [facility] Start: 05-25-2026 Tetanus vaccination Tetanus: Every 10yrs [facility] Start: 09-26-2025 End: 09-26-2025 Telemedicine consultation with patient 09/26/2025 2:15 PM EST Telemedicine Telephone [facility] [address] Medical Office Building, [address]th [place] [phone] Sukhjinder Thorpe MD [address] [place] [phone] [facility] Start: 09-26-2025 End: 09-26-2025 Patient encounter procedure 09/26/2025 10:30 AM EST Appointment [facility] [address] [place] [phone] Sukhjinder Thorpe MD [address] [place] [phone] [facility] Start: 06-25-2025 Influenza vaccination Influenza Vaccine (#1) [facility] Start: 03-28-2025 End: 03-28-2025 Patient encounter procedure 03/28/2025 8:30 AM EDT Off ice Visit [facility] [address] [facility] Medical Office [facility], [address] [place] [phone] Sukhjinder Thorpe MD [address] [place] [phone] [facility] Start: 02-27-2025 End: 02-27-2025 Follow-up encounter 02/27/2025 8:45 AM EDT [facility] [address] Medical Office [facility], [address] [place] [phone] Matthew Nichols CNP [address] [place] [phone] [facility] Start: 01-09-2025 Subsequent hospital visit by physician 01/09/2025 Hospital Encounter [facility] [address] [place] [address] Sukhjinder Thorpe MD [address] [place] [phone] [facility] Start: 11-23-2024 End: 11-23-2024 Patient encounter procedure 11/23/2024 2:15 PM EST [facility] [address] Office [facility], [address] [place] [phone] Sukhjinder Thorpe MD [address] [place] [phone] [facility] Start: 08-19-2023 End: 08-19-2023 Patient encounter procedure 08/19/2023 3:45 PM EDT [facility] [address] [facility] Medical Office [facility], [address] [place] [phone] Sukhjinder Thorpe MD [address] [address] [facility] Start: 07-21-2023 End: 07-21-2023 Patient encounter procedure 07/21/2023 9:45 AM EDT [facility] [address] Medical Office Building, [address]th [place] [phone] Sukhjinder Thorpe MD [address] [place] [phone] [facility] Start: 06-25-2023 COVID-19 Vaccine () COVID-19 Vaccine ( season) [facility] Start: 06-25-2023 Influenza vaccination Sequential Influenza Vaccine (#1) [facility] Start: 02-09-2023 End: 02-09-2023 Patient encounter procedure 02/09/2023 9:30 AM EDT [facility] [address] Medical Office [facility], [address] [place] [phone] Matthew Nichols, JOHANA [address] [facility] [address] [address] [facility] Start: 01-28-2023 End: 01-28-2023 REPAIR HERNIA HIATAL WITH SPHINCTER AUGMENTATION ROBOTIC XI REPAIR HERNIA HIATAL WITH SPHINCTER AUGMENTATION ROBOTIC XI Hiatal hernia with GERD without esophagitis 01/28/2023 11:51 AM EDT [facility] Start: 12-29-2022 End: 12-29-2022 Admission to same day surgery center 12/29/2022 Surgery Sukhjinder Thorpe MD [address] [place] [phone] ESOPHAGOGASTRODUODENOSCOPY WITH BIOPSY AND [facility] Comment on above: ESOPHAGOGASTRODUODENOSCOPY WITH BIOPSY A [facility] Start: 12-29-2022 End: 12-29-2022 Esophagogastroduodenoscopy ESOPHAGOGASTRODUODENOSCOPY Heartburn Gaseous regurgitation Nausea and vomiting, unspecified vomiting type Chronic cough Chronic sore throat 12/29/2022 9:20 AM [facility] Start: 12-29-2022 End: 12-29-2022 PROLONGED ACID REFLUX TEST 48H PH PROLONGED ACID REFLUX TEST 48H PH Heartburn Gaseous regurgitation Nausea and vomiting, unspecified vomiting type Chronic cough Chronic sore throat 12/29/2022 9:20 AM [facility] Start: 12-29-2022 End: 12-29-2022 Admission to same day surgery center 12/29/2022 Surgery Sukhjinder Thorpe MD [address] [place] [address] ESOPHAGEAL MANOMETRY [facility] Comment on above: ESOPHAGEAL MANOMETRY Start: 12-29-2022 End: 12-29-2022 Esophageal manometry ESOPHAGEAL MANOMETRY Heartbu rn [R12] Gaseous regurgitation [R14.2] Nausea and vomiting, unspecified vomiting type [R11.2] Chronic cough [R05.3] Chronic sore throat [J31.2] 12/29/2022 7:25 AM [facility] Start: 12-29-2022 Subsequent hospital visit by physician 12/29/2022 Hospital Encounter Sukhjinder Thorpe MD [address] [place] [address] [facility] Start: 10-27-2021 COVID-19 Vaccine (4 - Booster for Moderna series) COVID-19 Vaccine (4 - Booster for Moderna series) [facility] Start: 10-27-2021 COVID-19 Vaccine (4 - Moderna series) COVID-19 Vaccine (4 - Moderna series) [facility] Start: 02-18-2015 Vaccination for human papillomavirus HPV Vaccines (1 - 3-dose SCDM series) [facility] Start: 02-18-2007 Hepatitis B vaccination Hepatitis B Vaccines (1 of 3 - 19+ 3-dose series) [facility] Start: 02-18-2007 Pneumococcal vaccination Pneumococcal Vaccine (1 of 2 - PCV) [facility] Start: 02-18-2007 Pneumococcal Vaccine: Ped or At-Risk (1 of 2 - PCV) Pneumococcal Vaccine: Ped or At-Risk (1 of 2 - PCV) [facility] Start: 02-18-2006 Hepatitis C screening Hepatitis C Screening [facility] Start: 02-18-2003 HIV screening HIV Screening [facility] Start: 02-18-2001 Varicella vaccination Varicella Vaccines (1 of 2 - 13+ 2-dose series) [facility] Start: 2000 Depression screening using PHQ-9 (Patient Health Questionnaire 9) score [facility] Start: 02-18-1994 Pneumococcal Vaccine: Ped or At-Risk (1 - PCV) Pneumococcal Vaccine: Ped or At-Risk (1 - PCV) [facility] Start: 02-18-1991 History and physical examination, annual for health maintenance Wellness Visit [facility] Start: 02-18-1989 Foqzmdt-taabs-ldqlnaj vaccination MMR Vaccines (1 of 1 - Standard series) [facility] Beef IgE Ab [Units/v olume] in Serum [facility] Work Phone: Chocolate IgE Ab [Units/volume] in Serum [facility] Work Phone: [place] IgE Ab [Units/v olume] in Serum [facility] Work Phone: Cow milk IgE Ab [Uni ts/volume] in Serum [facility] Work Phone: ESOPHAGOSCOPY [facility] Esophagoscopy flexib le transoral diagnostic ESOPHAGOSCOPY Esophageal dysphagia Status post laparoscopic Marya fundoplication [facility] Work Phone: Laps surg esopg/gstr fundoplasty REPAIR HERNIA HIATAL WITH SPHINCTER AUGMENTATION ROBOTIC XI Status post laparoscopic Marya fundoplication Esophageal dysphagia [facility] Peanut IgE Ab [Units /volume] in Serum [facility] Work Phone: Pork IgE Ab [Units/v olume] in Serum [facility] Work Phone: End: 08-17-2026 RF videography Hypopharynx and Esophagus Views W liquid and paste contrast PO during swallowing XR Esophagram Swallow Study Imaging Routine Pharyngoesophageal dysphagia 1 Occurrences starting 08/17/2025 until 08/17/2026 [facility] Work Phone: Comment on above: 1 Occurrences starting 08/17/2025 until 08/17/2026 Soybean IgE Ab [Unit s/volume] in Serum [facility] Work Phone: Wheat IgE Ab [Units/ volume] in Serum [facility] Work Phone: Whole Egg IgE Ab [Units/volume] in Serum [facility] Work Phone: Immunizations Immunization Date Immunization Notes Care Provider Fa cili 08-21-2024 influenza virus vacc ine, unspecified formulation Ene Betancourt RN [facility] Payers Date Payer Category Payer Self-pay [id number] 2022 Managed Care HMO (unspecified) [facility] HMO/CHOICE PLUS/JIMMIE/JIMMIE PLUS Member Subscriber Plan / Payer (Effective 2022-Present) Name: Moe Bolivar Relation to Subscriber: Spouse Name: SERGEY BOLIVAR Date of : 1987 Address: [address] [place] [address] Payer ID: [id number] (NAIC) Type: Not on file Address: [address] [place] [id number] 2022 Unknown [facility] HMO/NARANJO CE PLUS/JIMMIE/JIMMIE PLUS [id number] 2022-Present [phone] [address] [place] [id number] [id number] 2022 Unknown [id number] 1990 Unknown [id number] 903 1988 Unknown [id number] 903 1988 Unknown [id number] 903 1988 Unknown [id number] 90 1988 Unknown [id number]. 90 1988 Unknown [id number]. 90 1988 Unknown [id number]. 903 1988 Unknown [id number]. 90 1988 Unknown [id number]. 903 1959 Unknown [id number] Unknown [facility] PACKAGE PLAN [id number] Unknown [facility] [id number] Unknown [id number] Social History Date Type Detail Facility Start: 10-08-2013 End: 05-05-2023 Tobacco smoking status COIS Unknown if ever smoked [facility] Start: 1990 Sex Assigned At Male [facility] Start: 11-18-2022 End: 01-18-2023 Tobacco smoking status NHIS Ex-smoker [facility] History of tobacco use Current smoker [facility] History of tobacco use [facility]arette [facility] Start: 11-18-2022 End: 01-18-2023 Tobacco use and exposure Smokeless tobacco non-user [facility] Start: 11-18-2022 End: 07-21-2023 Alcohol intake Current drinker of alcohol (finding) [facility] Start: 11-18-2022 Alcohol Comment occasional [facility] Start: 1990 Sex Assigned At Not on file [facility] Start: 11-08-2022 End: 01-18-2023 Exposure to SARS-CoV-2 (event) Not sure [facility] Start: 01-18-2023 End: 03-28-2025 History of Social function [facility] Start: 01-18-2023 End: 03-28-2025 Tobacco use panel [facility] Start: 01-18-2023 Tobacco Comment QUIT IN 2005 [facility] Start: 01-18-2023 Alcohol Comment 1 BEER A WEEK [facility] Start: 02-09-2023 Gender identity Identifies as male gender (finding) [facility] Start: 02-09-2023 Sexual orientation Heterosexual (finding) [facility] Start: 08-03-2023 End: 03-28-2025 Alcohol intake Ex-drinker (finding) [facility] Start: 02-01-2025 Alcohol Comment rarely [facility] Medical Equipment Procedure Code Equipment Code Equipment Origin al Text Equipment Identifier Dates Kemp Cf Capsule [id number], [id number] FDA Start: 12-29-2022 Comment on above: Description: Chip pl aced at 35 Cm Mesh 7 X 10cm Resorbable [address] - Sna [id number])[id number], [id number] FDA Start: 01-28-2023 Band 15 Esophage al Magnetic - Sna [id number] 2(21)NA, [id number] FDA Start: 01-28-2023 Mesh 7 X 10cm Resorbable [facility] [address] - [id number] Start: 02-08-2025 Band 16 Esophage al Magnetic - [id number] Start: 02-08-2025 Clinical Notes 11-18-2022 to 03-28-2025 Sukhjinder Thorpe MD - 03/28/2025 8:51 AM Matthew Luong CNP - 02/27/2025 8:43 AM Sukhjinder Hunt MD - 01/24/2025 7:16 PM Sukhjinder Hunt MD - 11/23/2024 2:29 PM EST Note Date & Type Note Facility 03-28-2025 Note [facility] PATIENT: Moe Bolivar DATE / TIME: 03/28/25 8:51 AM POS: Office AGE: 35 y.o. : 1990 RACE: [1] SEX: male PCP: Maximo Mejia MD REFERRAL: No ref. provider found TOS: SUBJECTIVE: The patient returns for second postoperative visit after undergoing a robotic assisted laparoscopic redo hiatal hernia repair, explant of size 15 LINX device and reimplantation of size 16 Linx device. Overall the patient is doing well. He denies any meaningful esophageal dysphagia. He does have a couple regurgitation episodes since surgery. He is tolerating a regular diet. OBJECTIVE: BP 118/78 Pulse 68 Ht 6' 1 Wt 78.8 kg (173 lb 11.2 oz) SpO2 98% BMI 22.92 kg/m ASSESSMENT: Postop follow-up PLAN: 1. Diet and activity as tolerated 2. Follow-up as needed AUTHENTICATED BY SUKHJINDER THORPE ON 03/28/2025 08:52:36 [facility] 03-28-2025 History of Present illness Narrative [facility] PATIENT: Moe Bolivar DATE / TIME: 03/28/25 8:51 AM POS: Office AGE: 35 y.o. : 1990 RACE: [1] SEX: male PCP: Maximo Mejia MD REFERRAL: No ref. provider found TOS: SUBJECTIVE: The patient returns for second postoperative visit after undergoing a robotic assisted laparoscopic redo hiatal hernia repair, explant of size 15 LINX device and reimplantation of size 16 Linx device. Overall the patient is doing well. He denies any meaningful esophageal dysphagia. He does have a couple regurgitation episodes since surgery. He is tolerating a regular diet. OBJECTIVE: BP 118/78 Pulse 68 Ht 6' 1 Wt 78.8 kg (173 lb 11.2 oz) SpO2 98% BMI 22.92 kg/m ASSESSMENT: Postop follow-up PLAN: 1. Diet and activity as tolerated 2. Follow-up as needed documented in this encounter [facility] 02-27-2025 Note [facility] PATIENT: Moe Bolivar DATE / TIME: 02/27/25 8:52 AM POS: Office AGE: 35 y.o. : 1990 RACE: [1] SEX: male PCP: Maximo Mejia MD REFERRAL: No ref. provider found SUBJECTIVE: Patient presents for first post operative visit after undergoing a robotic assisted laparoscopic redo hiatal hernia repair with mesh and exchange of LINX deice from 15 bead to 16 bead. He has called the [facility] line since surgery. He was complaining of severe heartburn and regurgitation. He was started on Carafate. He has stopped this but states it did help. He also was complaining of continued dysphagia and refill was sent for prednisone. He is on his last prednisone pill and feels this is much better. He then called again with complaints of esophageal spasm and was started on Valium. He did not take the valium and and has had no more issues with esophageal spasms. Tolerating a regular diet. He has lost only about 5 pounds since surgery. OBJECTIVE: BP (!) 136/90 Pulse 70 Ht 6' 1 Wt 78.1 kg (172 lb 1.6 oz) SpO2 97% BMI 22.71 kg/m Abdomen soft, nontender, nondistended. Incisions well approximated with elda. ASSESSMENT: S/P robotic assisted laparoscopic redo hiatal hernia repair with mesh and exchange of LINX deice from 15 bead to 16 bead PLAN: Diet per LINX protocol Continue lifting restrictions [place] removed Follow up with Dr. Thorpe in 4 weeks AUTHENTICATED BY MATTHEW NICHOLS ON 02/27/2025 09:01:42 [facility] 02-27-2025 History of Present illness Narrative [facility] PATIENT: Moe Bolivar DATE / TIME: 02/27/25 8:52 AM POS: Office AGE: 35 y.o. : 1990 RACE: [1] SEX: male PCP: Maximo Mejia MD REFERRAL: No ref. provider found SUBJECTIVE: Patient presents for first post operative visit after undergoing a robotic assisted laparoscopic redo hiatal hernia repair with mesh and exchange of LINX deice from 15 bead to 16 bead. He has called the [facility] line since surgery. He was complaining of severe heartburn and regurgitation. He was started on Carafate. He has stopped this but states it did help. He also was complaining of continued dysphagia and refill was sent for prednisone. He is on his last prednisone pill and feels this is much better. He then called again with complaints of esophageal spasm and was started on Valium. He did not take the valium and and has had no more issues with esophageal spasms. Tolerating a regular diet. He has lost only about 5 pounds since surgery. OBJECTIVE: BP (!) 136/90 Pulse 70 Ht 6' 1 Wt 78.1 kg (172 lb 1.6 oz) SpO2 97% BMI 22.71 kg/m Abdomen soft, nontender, nondistended. Incisions well approximated with elda. ASSESSMENT: S/P robotic assisted laparoscopic redo hiatal hernia repair with mesh and exchange of LINX deice from 15 bead to 16 bead PLAN: Diet per LINX protocol Continue lifting restrictions Elda removed Follow up with Dr. Thorpe in 4 weeks documented in this encounter [facility] 02-01-2025 Note Pre-Operative H&P Assessment and Plan Dysphagia Pt scheduled to undergo a REVISION OF LINX SPHINCTER AUGMENTATION DEVICE ROBOTIC XI with Dr. Thorpe on 02/08/2025. Asthma Exercise induced. Albuterol inhaler as needed. Mitral valve prolapse Asymptomatic. No medical treatment necessary. Pre-op examination FLAHERTY score indicates a 0.1% risk of LA or cardiac arrest, intraoperatively or up to 30 days post-op. Pt denies chest pain, abnormal SOB with exertion, palpitations, syncope or near syncopal episodes, PND, orthopnea, or pedal edema. METS greater than 4. Per 2014 ACC/AHA guidelines, no further cardiac testing is indicated. Apfel score of 3; 61% 24-hour risk of PONV. Pt reports a history of PONV- well controlled with scopolamine patch. According to the stop bang assessment, the patient would be considered a mild risk for NANCY. Vital signs are within acceptable limits for surgery. Blood work has been reviewed and is with acceptable limits for surgery. Pt denies cardiopulmonary complaints. Pt would be considered an acceptable risk for surgery. Chief Complaint Patient presents with - Pre-operative Medical Risk Stratification History of Present Illness Moe Bolivar is a 34 y.o. male who presents at the request of Dr. Thorpe prior to REVISION OF LINX SPHINCTER AUGMENTATION DEVICE ROBOTIC XI. The patient has a past medical history that consists of asthma, hiatal hernia, GERD, MVP, and motion sickness. Moe does have a history of PONV. The patient denies any cardiopulmonary complaints. Blood work has been reviewed. The patient has been given preoperative medication instructions. Please see below regarding status of active medical conditions and assessment and plan regarding details of preoperative medical risk stratification. Past Medical History: Diagnosis Date - Asthma - GERD (gastroesophageal reflux disease) - Mitral valve prolapse - Motion sickness - PONV (postoperative nausea and vomiting) No past medical history pertinent negatives. Past Surgical History: Procedure Laterality Date - COLONOSCOPY 2018 - EGD N/A 12/29/2022 Procedure: ESOPHAGOGASTRODUODENOSCOPY WITH BIOPSY AND KEMP; Surgeon: Sukhjinder Thorpe MD; Location: [facility]; Service: General Surgery - ESOPHAGEAL MANOMETRY N/A 12/29/2022 Procedure: ESOPHAGEAL MANOMETRY; Surgeon: Sukhjinder Thorpe MD; Location: [facility]; Service: General Surgery - ESOPHAGOGASTRODUODENOSCOPY 2018 - ESOPHAGOSCOPY N/A 06/08/2023 Procedure: ESOPHAGOSCOPY WITH PNEUMATIC BALLOON DILATION; Surgeon: Sukhjinder Thorpe MD; Location: [facility]; Service: Gastroenterology - ESOPHAGOSCOPY N/A 08/02/2023 Procedure: ESOPHAGOSCOPY WITH PNEUMATIC BALLOON DILATION; Surgeon: Sukhjinder Thorpe MD; Location: [facility]; Service: Gastroenterology - ESOPHAGOSCOPY N/A 01/09/2025 Procedure: ESOPHAGOSCOPY WITH PNEUMATIC BALLOON DILATION; Surgeon: Sukhjinder Thorpe MD; Location: [facility]; Service: Gastroenterology; Laterality: N/A; - PROLONGED ACID REFLUX TEST 48H PH N/A 12/29/2022 Procedure: PROLONGED ACID REFLUX TEST 48H PH; Surgeon: Sukhjinder Thorpe MD; Location: [facility]; Service: General Surgery - REPAIR HERNIA HIATAL WITH SPHINCTER AUGMENTATION ROBOTIC XI N/A 01/28/2023 Procedure: REPAIR HERNIA HIATAL WITH MESH AND LINX SPHINCTER AUGMENTATION ROBOTIC XI; Surgeon: Sukhjinder Thorpe MD; Location: [facility]; Service: Gen-Robotics - VASECTOMY - WISDOM TOOTH EXTRACTION Social History Tobacco Use - Smoking status: Former Types: Cigarettes - Smokeless tobacco: Never - Tobacco comments: QUIT IN 2006 Substance Use Topics - Alcohol use: Not Currently Comment: rarely Family History Problem Relation Age of Onset - No Known Problems Mother - No Known Problems Father - Prostate cancer Maternal Uncle Prior to Admission medications taking for visit date 02/01/25 Medication Sig Taking? Discontinued? albuterol 90 mcg/actuation inhaler PRN . Yes Allergies[1] Review of Systems Constitution: (negative) HENT: (negative) Eyes: (negative) Respiratory: (negative) Cardiovascular: (negative) - Exercise capacity: Greater than 4 METS Gastrointestinal: (negative) Genitourinary: (negative) Musculoskeletal: (negative) Skin: (negative) Neurological: (negative) Hematological: (negative) Physical Exam BP 139/80 (BP Location: Left arm, Patient Position: Sitting) Pulse 83 Ht 6' 1 Wt 79.8 kg (176 lb) SpO2 95% BMI 23.22 kg/m Constitutional: He is oriented to person, place, and time. He appears well developed and well-nourished. Skin: Skin is warm, dry and intact. Eyes: Conjunctivae and EOM are normal. Pupils are equal, round, and reactive to light. HENT: Right Ear: External ear normal. Left Ear: External ear normal. Nose: Nose normal. Mouth/Throat: Abnormal dentition. Neck: Normal range of motion. No tracheal deviation present. Cardiovascular: Normal rate and regular rhythm. Pulmonary/Chest: Effort (more content not included)... [facility] 01-24-2025 Note [facility] [address]) [facility] [address] [facility] [id number] Moe Bolivar is a 34 y.o. male being seen on 01/24/25 for Chief Complaint Patient presents with Follow-up ESOPHAGOSCOPY WITH PNEUMATIC BALLOON DILATION HPI: The patient returns for follow-up after undergoing pneumatic dilation of his LINX device. The patient initially underwent a robotic assisted laparoscopic hiatal hernia repair with mesh and LINX sphincter augmentation on 01/28/2023. He underwent his initial pneumatic dilation on 06/08/2023. He had relief for a short period of time but then recurrent symptoms. He came back on 08/02/2023 for a second pneumatic dilation. He had some esophageal spasms after the second dilation but overall did well. He then represented in October 2024 with recurrent esophageal dysphagia. On 01/09/2025 he underwent a third pneumatic dilation of his LINX device. He did well for about 8 or 9 days post dilation while on steroids. On day 9 he began experiencing recurrence of the dysphagia. The dysphagia has gotten slightly worse. He is never had any issues with heartburn or regurgitation. The LINX device on the esophagram from 10/26/2024 revealed delayed clearance. The device was also in a teardrop configuration with some unusual angulation raising concerns about possible scarring of the device to the diaphragm or left lobe of the liver. The fluoroscopic imaging at the time of his dilation on 01/09/2025 again demonstrated this abnormal configuration which did not resolve with dilation. It was also noted at the time of the dilation that the device did not symmetrically open with the balloon. All of these findings are concerning for for the device being scarred to either the left lobe of the liver or the diaphragm. Past Medical History: Diagnosis Date Asthma GERD (gastroesophageal reflux disease) Mitral valve prolapse Motion sickness Past Surgical History: Procedure Laterality Date COLONOSCOPY 2018 EGD N/A 12/29/2022 Procedure: ESOPHAGOGASTRODUODENOSCOPY WITH BIOPSY AND KEMP; Surgeon: Sukhjinder Thorpe MD; Location: [facility]; Service: General Surgery ESOPHAGEAL MANOMETRY N/A 12/29/2022 Procedure: ESOPHAGEAL MANOMETRY; Surgeon: Sukhjinder Thorpe MD; Location: [facility]; Service: General Surgery ESOPHAGOGASTRODUODENOSCOPY 2018 ESOPHAGOSCOPY N/A 06/08/2023 Procedure: ESOPHAGOSCOPY WITH PNEUMATIC BALLOON DILATION; Surgeon: Sukhjinder Thorpe MD; Location: [facility]; Service: Gastroenterology ESOPHAGOSCOPY N/A 08/02/2023 Procedure: ESOPHAGOSCOPY WITH PNEUMATIC BALLOON DILATION; Surgeon: Sukhjinder Thorpe MD; Location: [facility]; Service: Gastroenterology ESOPHAGOSCOPY N/A 01/09/2025 Procedure: ESOPHAGOSCOPY WITH PNEUMATIC BALLOON DILATION; Surgeon: Sukhjinder Thorpe MD; Location: [facility]; Service: Gastroenterology; Laterality: N/A; PROLONGED ACID REFLUX TEST 48H PH N/A 12/29/2022 Procedure: PROLONGED ACID REFLUX TEST 48H PH; Surgeon: Sukhjinder Thorpe MD; Location: [facility]; Service: General Surgery REPAIR HERNIA HIATAL WITH SPHINCTER AUGMENTATION ROBOTIC XI N/A 01/28/2023 Procedure: REPAIR HERNIA HIATAL WITH MESH AND LINX SPHINCTER AUGMENTATION ROBOTIC XI; Surgeon: Sukhjinder Thorpe MD; Location: [facility]; Service: Gen-Robotics VASECTOMY WISDOM TOOTH EXTRACTION Allergies[1] Current Medications[2] Social History[3] Family History Problem Relation Age of Onset No Known Problems Mother No Known Problems Father Prostate cancer Maternal Uncle REVIEW OF SYSTEMS Pertinent positives are listed in HPI, PMSH, SH, ALL, otherwise all systems reviewed below are negative. The following systems were reviewed: [x] Const (fevers, chills, wt. loss, fatigue) [x] CV (HTN, CP, LEMON, edema, DVT) [x] Resp (SOB, pleurisy, asthma, apnea) [x] GI (N, V, D, C, M, abd pain, appetite) [x] Musc (back pain, joint stiffness, gout) [x] Neuro (seizures, syncope, paralysis) [x] Psych (depression, anxiety) [x] Endo (hot/cold intol, polyuria[DM]) [x] Hem/Lymph (Anemia, LA, bleeding) [x] Allerg/Immun (seasonal, immuniz) [x] Eyes (diplopia, cataracts) [x] ENT/mouth (dysphagia, epistaxis) [x] (dysuria, hematuria) [x] Skin/Breast (moles, rash, lumps, nipple changes) Pertinent Positives: See HPI Pertinent Negatives: See HPI Physical Exam: BP 138/83 Pulse 68 Ht 6' 1 Wt 79.8 kg (176 lb) SpO2 99% BMI 23.22 kg/m Body mass index is 23.22 kg/m . Constitutional: Well nourished, well developed person in no acute distress. Ambulates without difficulty. Head: Atraumatic and normocephalic. Face: Within normal limits. Eyes: Pupils equal, round, reactive to light. Sclera white. Mouth: Moist mucous membranes, normal dentation. Neck: supple, trachea midline,no masses, no incisions. Lymphatic: No cervical or inguinal lymphadenopathy. Heart: Regular rate and rhythm. Lungs: Clear to auscultation. Abdomen: Soft, non-distended, (more content not included)... [facility] 01-24-2025 History of Present illness Narrative [facility] [address]) [facility] [address] [facility] [id number] Moe Bolivar is a 34 y.o. male being seen on 01/24/25 for Chief Complaint Patient presents with Follow-up ESOPHAGOSCOPY WITH PNEUMATIC BALLOON DILATION HPI: The patient returns for follow-up after undergoing pneumatic dilation of his LINX device. The patient initially underwent a robotic assisted laparoscopic hiatal hernia repair with mesh and LINX sphincter augmentation on 01/28/2023. He underwent his initial pneumatic dilation on 06/08/2023. He had relief for a short period of time but then recurrent symptoms. He came back on 08/02/2023 for a second pneumatic dilation. He had some esophageal spasms after the second dilation but overall did well. He then represented in October 2024 with recurrent esophageal dysphagia. On 01/09/2025 he underwent a third pneumatic dilation of his LINX device. He did well for about 8 or 9 days post dilation while on steroids. On day 9 he began experiencing recurrence of the dysphagia. The dysphagia has gotten slightly worse. He is never had any issues with heartburn or regurgitation. The LINX device on the esophagram from 10/26/2024 revealed delayed clearance. The device was also in a teardrop configuration with some unusual angulation raising concerns about possible scarring of the device to the diaphragm or left lobe of the liver. The fluoroscopic imaging at the time of his dilation on 01/09/2025 again demonstrated this abnormal configuration which did not resolve with dilation. It was also noted at the time of the dilation that the device did not symmetrically open with the balloon. All of these findings are concerning for for the device being scarred to either the left lobe of the liver or the diaphragm. Past Medical History: Diagnosis Date Asthma GERD (gastroesophageal reflux disease) Mitral valve prolapse Motion sickness Past Surgical History: Procedure Laterality Date COLONOSCOPY 2018 EGD N/A 12/29/2022 Procedure: ESOPHAGOGASTRODUODENOSCOPY WITH BIOPSY AND KEMP; Surgeon: Sukhjinder Thorpe MD; [facility]; Service: General Surgery ESOPHAGEAL MANOMETRY N/A 12/29/2022 Procedure: ESOPHAGEAL MANOMETRY; Surgeon: Sukhjinder Thorpe MD; Location: [facility]; Service: General Surgery ESOPHAGOGASTRODUODENOSCOPY 2018 ESOPHAGOSCOPY N/A 06/08/2023 Procedure: ESOPHAGOSCOPY WITH PNEUMATIC BALLOON DILATION; Surgeon: Sukhjinder Thorpe MD; Location: [facility]; Service: Gastroenterology ESOPHAGOSCOPY N/A 08/02/2023 Procedure: ESOPHAGOSCOPY WITH PNEUMATIC BALLOON DILATION; Surgeon: Sukhjinder Thorpe MD; Location: [facility]; Service: Gastroenterology ESOPHAGOSCOPY N/A 01/09/2025 Procedure: ESOPHAGOSCOPY WITH PNEUMATIC BALLOON DILATION; Surgeon: Sukhjinder Thorpe MD; Location: [facility]; Service: Gastroenterology; Laterality: N/A; PROLONGED ACID REFLUX TEST 48H PH N/A 12/29/2022 Procedure: PROLONGED ACID REFLUX TEST 48H PH; Surgeon: Sukhjinder Thorpe MD; Location: [facility]; Service: General Surgery REPAIR HERNIA HIATAL WITH SPHINCTER AUGMENTATION ROBOTIC XI N/A 01/28/2023 Procedure: REPAIR HERNIA HIATAL WITH MESH AND LINX SPHINCTER AUGMENTATION ROBOTIC XI; Surgeon: Sukhjinder Thorpe MD; Location: [facility]; Service: Gen-Robotics VASECTOMY WISDOM TOOTH EXTRACTION Allergies[1] Current Medications[2] Social History[3] Family History Problem Relation Age of Onset No Known Problems Mother No Known Problems Father Prostate cancer Maternal Uncle REVIEW OF SYSTEMS Pertinent positives are listed in HPI, PMSH, SH, ALL, otherwise all systems reviewed below are negative. The following systems were reviewed: [x] Const (fevers, chills, wt. loss, fatigue) [x] CV (HTN, CP, LEMON, edema, DVT) [x] Resp (SOB, pleurisy, asthma, apnea) [x] GI (N, V, D, C, M, abd pain, appetite) [x] Musc (back pain, joint stiffness, gout) [x] Neuro (seizures, syncope, paralysis) [x] Psych (depression, anxiety) [x] Endo (hot/cold intol, polyuria[DM]) [x] Hem/Lymph (Anemia, LA, bleeding) [x] Allerg/Immun (seasonal, immuniz) [x] Eyes (diplopia, cataracts) [x] ENT/mouth (dysphagia, epistaxis) [x] (dysuria, hematuria) [x] Skin/Breast (moles, rash, lumps, nipple changes) Pertinent Positives: See HPI Pertinent Negatives: See HPI Physical Exam: BP 138/83 Pulse 68 Ht 6' 1 Wt 79.8 kg (176 lb) SpO2 99% BMI 23.22 kg/m Body mass index is 23.22 kg/m . Constitutional: Well nourished, well developed person in no acute distress. Ambulates without difficulty. Head: Atraumatic and normocephalic. Face: Within normal limits. Eyes: Pupils equal, round, reactive to light. Sclera white. Mouth: Moist mucous membranes, normal dentation. Neck: supple, trachea midline,no masses, no incisions. Lymphatic: No cervical or inguinal lymphadenopathy. Heart: Regular rate and rhythm. Lungs: Clear to auscultation. Abdomen: Soft, non-distended, non-tender, no heptasplenomegaly, no umbilica, incisional, femoral, or inguinal hernias. Pelvis: Stable, non-tender. Skin: Warm, moist, normal skin turgor. Peripheral Vascular: Palapable carotid, radial, and femoral pulses, no peripheral edema. Neuropsych: Alert and oriented, judgement and insight intact. Normal Gait. Assessment: 1. Status post robotic hiatal hernia repair with mesh and LINX sphincter augmentation 2. Esophageal dysphagia No orders of the defined types were placed in this encounter. Plan: I had a detailed discussion with the patient regarding treatment options. We discussed explant of the device versus repositioning of the device and possible exchange of the device versus explant of the device with conversion to fundoplication. At this point the patient would like to undergo revisional surgery. I did inform the patient that revision might not resolve his symptoms. He expressed understanding and wishes to proceed. I will schedule a robotic repositioning of the LINX device with possible exchange to a larger size. Risk, benefits, and alternatives were discussed patient detail prior to obtaining consent. Sukhjinder Thorpe MD [1] No Known Allergies [2] Current Outpatient Medications Medication Sig Dispense Refill albuterol 90 mcg/actuation inhaler PRN . No current facility-administered medications for this visit. [3] Social History Tobacco Use Smoking status: Former Types: Cigarettes Smokeless tobacco: Never Tobacco comments: QUIT IN 2006 Vaping Use Vaping status: Never Used Substance Use Topics Alcohol use: Not Currently Drug use: Never documented in this encounter [facility] 11-23-2024 Note [address] [address]) [facility] [address] [facility] [phone] Telephone Visit [facility] 11/23/2024 Sukhjinder Thorpe MD Provider Location: [facility] [place] Patient Location Senior Occupational Therapist: None Patient Location: Patient's Home Patient: Moe Bolivar Date of : 1990 (34 y.o. male) PCP: Maximo Mejia MD I discussed risks, benefits and alternatives of a telephone visit telemedicine consultation with the patient (and any accompanying persons) including the risks that the patient's personal health details and medical records will be discussed over real-time, synchronous, interactive audio technology, the visit will not be recorded without the express consent of both the provider and the patient, and that there are inherent diagnostic limitations compared to [id number] evaluations. We elected to proceed with the telephone visit telemedicine consultation. Telemedicine visit was done with the patient today using a telephone call. Patient was at home for this visit. The patient identity was verified by confirming the date of and address on file. HPI This is a 34-year-old gentleman who underwent a robotic assisted laparoscopic hiatal hernia repair with mesh and link sphincter augmentation on 01/28/2023. On 06/08/2023 he underwent pneumatic dilation of his LINX. He underwent a second dilation on 08/02/2023. He has had multiple courses of steroids. He continues to have intermittent issues with esophageal dysphagia and the sensation of regurgitation. I obtained an esophagram at his last visit. The results are as follows: FINDINGS: LINX gastroesophageal management system is present in appropriate position. Barium swallow was performed without difficulty. There is delayed emptying of the esophagus with esophago-esophageal reflux with thin barium liquid, marshmallow consistency, and bagel consistency. The marshmallow consistency did not clear from the esophagus for approximately 2 minutes despite multiple esophageal contractions, until it was moved through the gastroesophageal junction by additional thick barium contrast. Bagel consistency also required multiple esophageal contractions and cleared the esophagus in approximately 1 minute after an additional swallow of water. No mucosal abnormalities. No gastroesophageal reflux or hiatal hernia. Fundus of the stomach was unremarkable. IMPRESSION: 1. No gastroesophageal reflux was visualized. 2. LINX gastroesophageal management system is present in appropriate position. 3. There is delayed esophageal emptying with esophago-esophageal reflux. This is most prominent with marshmallow consistency although also occurs with bagel consistency and thin barium contrast, as described above. He just completed another 10-day course of steroids. He said he had very little improvement of symptoms this time. He does indicate that he would prefer to undergo one more pneumatic dilation. We did discuss explant with conversion to partial fundoplication. He would still like to undergo the pneumatic dilation first. He is agreeable to explant with conversion if the repeat dilation fails to resolve his dysphagia and intraesophageal regurgitation. The following portions of the patient's history were reviewed and updated as appropriate: allergies, current medications, past family history, past medical history, past social history, past surgical history, and problem list. Review of Systems Patient's Medications New Prescriptions No medications on file Previous Medications ALBUTEROL 90 MCG/ACTUATION INHALER PRN . OMEPRAZOLE (PRILOSEC) 20 MG CAPSULE Take 1 (one) capsule (20 mg total) by mouth daily . Modified Medications No medications on file Discontinued Medications PREDNISONE (DELTASONE) 50 MG TABLET Take 1 (one) tablet (50 mg total) by mouth daily . Assessment/Plan: Diagnoses and all orders for this visit: Esophageal dysphagia Status post robotic hiatal hernia repair with mesh and LINX sphincter augmentation Schedule esophagoscopy with pneumatic dilation using 30 mm balloon I have spent 20 minutes with the patient reviewing the HPI and Plan of Care. AUTHENTICATED BY SUKHJINDER THORPE, ON 11/23/2024 14:34:39 [facility] 11-23-2024 History of Present illness Narrative [address] [address] ([address]) [facility] [address] [facility] [phone] Telephone Visit [facility] 11/23/2024 Sukhjinder Thorpe MD Provider Location: [facility] [place] Patient Location Senior Occupational Therapist: None Patient Location: Patient's Home Patient: Moe Bolivar Date of : 1990 (34 y.o. male) PCP: Maximo Mejia MD I discussed risks, benefits and alternatives of a telephone visit telemedicine consultation with the patient (and any accompanying persons) including the risks that the patient's personal health details and medical records will be discussed over real-time, synchronous, interactive audio technology, the visit will not be recorded without the express consent of both the provider and the patient, and that there are inherent diagnostic limitations compared to [id number] evaluations. We elected to proceed with the telephone visit telemedicine consultation. Telemedicine visit was done with the patient today using a telephone call. Patient was at home for this visit. The patient identity was verified by confirming the date of and address on file. HPI This is a 34-year-old gentleman who underwent a robotic assisted laparoscopic hiatal hernia repair with mesh and link sphincter augmentation on 01/28/2023. On 06/08/2023 he underwent pneumatic dilation of his LINX. He underwent a second dilation on 08/02/2023. He has had multiple courses of steroids. He continues to have intermittent issues with esophageal dysphagia and the sensation of regurgitation. I obtained an esophagram at his last visit. The results are as follows: FINDINGS: LINX gastroesophageal management system is present in appropriate position. Barium swallow was performed without difficulty. There is delayed emptying of the esophagus with esophago-esophageal reflux with thin barium liquid, marshmallow consistency, and bagel consistency. The marshmallow consistency did not clear from the esophagus for approximately 2 minutes despite multiple esophageal contractions, until it was moved through the gastroesophageal junction by additional thick barium contrast. Bagel consistency also required multiple esophageal contractions and cleared the esophagus in approximately 1 minute after an additional swallow of water. No mucosal abnormalities. No gastroesophageal reflux or hiatal hernia. Fundus of the stomach was unremarkable. IMPRESSION: 1. No gastroesophageal reflux was visualized. 2. LINX gastroesophageal management system is present in appropriate position. 3. There is delayed esophageal emptying with esophago-esophageal reflux. This is most prominent with marshmallow consistency although also occurs with bagel consistency and thin barium contrast, as described above. He just completed another 10-day course of steroids. He said he had very little improvement of symptoms this time. He does indicate that he would prefer to undergo one more pneumatic dilation. We did discuss explant with conversion to partial fundoplication. He would still like to undergo the pneumatic dilation first. He is agreeable to explant with conversion if the repeat dilation fails to resolve his dysphagia and intraesophageal regurgitation. The following portions of the patient's history were reviewed and updated as appropriate: allergies, current medications, past family history, past medical history, past social history, past surgical history, and problem list. Review of Systems Patient's Medications New Prescriptions No medications on file Previous Medications ALBUTEROL 90 MCG/ACTUATION INHALER PRN . OMEPRAZOLE (PRILOSEC) 20 MG CAPSULE Take 1 (one) capsule (20 mg total) by mouth daily . Modified Medications No medications on file Discontinued Medications PREDNISONE (DELTASONE) 50 MG TABLET Take 1 (one) tablet (50 mg total) by mouth daily . Assessment/Plan: Diagnoses and all orders for this visit: Esophageal dysphagia Status post robotic hiatal hernia repair with mesh and LINX sphincter augmentation Schedule esophagoscopy with pneumatic dilation using 30 mm balloon I have spent 20 minutes with the patient reviewing the HPI and Plan of Care. documented in this encounter [facility] 10-26-2024 Note [facility] PATIENT: Moe Bolivar DATE / TIME: 10/26/24 2:20 PM POS: Office AGE: 34 y.o. : 1990 RACE: [1] SEX: male PCP: Maximo Mejia MD REFERRAL: No ref. provider found TOS: SUBJECTIVE: The patient returns for follow-up after undergoing a marshmallow and bagel esophagram. The esophagram has not been officially read by the radiologist. I have reviewed the images that are available on synapse. There appears to be some intraesophageal regurgitation seen with liquid, marshmallow, and bagel consistencies. There is some clearance to the LINX device though I do not see a lot of mechanical opening and closing of the device with the mechanical swallow. The patient's primary symptom is burning in the esophagus which is worse in the morning. He denies significant dysphagia at this time. He does occasionally feel intraesophageal regurgitation type events. He underwent pneumatic dilation on 08/02/2023. He was treated with multiple courses of steroids and says that he felt completely normal while on the steroids. Over the course of time he has noticed gradual increase in the heartburn symptoms. He also indicates that he cannot belch or throw up. OBJECTIVE: BP 124/79 Pulse 62 Ht 6' 1 Wt 78.7 kg (173 lb 6.4 oz) SpO2 99% BMI 22.88 kg/m ASSESSMENT: Heartburn, intraesophageal regurgitation, status post LINX PLAN: 1. I will await final interpretation of the esophagram to determine if any intervention is indicated. For now I am going to place the patient on prednisone 50 mg p.o. daily x 10 days. I will have him follow-up with me by telehealth visit in 3 weeks. AUTHENTICATED BY SUKHJINDER THORPE, ON 10/26/2024 14:24:57 [facility] 10-26-2024 History of Present illness Narrative [facility] PATIENT: Moe Bolivar DATE / TIME: 10/26/24 2:20 PM POS: Office AGE: 34 y.o. : 1990 RACE: [1] SEX: male PCP: Maximo Mejia MD REFERRAL: No ref. provider found TOS: SUBJECTIVE: The patient returns for follow-up after undergoing a marshmallow and bagel esophagram. The esophagram has not been officially read by the radiologist. I have reviewed the images that are available on synapse. There appears to be some intraesophageal regurgitation seen with liquid, marshmallow, and bagel consistencies. There is some clearance to the LINX device though I do not see a lot of mechanical opening and closing of the device with the mechanical swallow. The patient's primary symptom is burning in the esophagus which is worse in the morning. He denies significant dysphagia at this time. He does occasionally feel intraesophageal regurgitation type events. He underwent pneumatic dilation on 08/02/2023. He was treated with multiple courses of steroids and says that he felt completely normal while on the steroids. Over the course of time he has noticed gradual increase in the heartburn symptoms. He also indicates that he cannot belch or throw up. OBJECTIVE: BP 124/79 Pulse 62 Ht 6' 1 Wt 78.7 kg (173 lb 6.4 oz) SpO2 99% BMI 22.88 kg/m ASSESSMENT: Heartburn, intraesophageal regurgitation, status post LINX PLAN: 1. I will await final interpretation of the esophagram to determine if any intervention is indicated. For now I am going to place the patient on prednisone 50 mg p.o. daily x 10 days. I will have him follow-up with me by telehealth visit in 3 weeks. documented in this encounter [facility] 08-19-2023 History of Present illness Narrative [facility] PATIENT: Moe Bolivar DATE / TIME: 08/19/23 4:25 PM POS: Office AGE: 33 y.o. : 1990 RACE: [1] SEX: male PCP: Maximo Mejia MD REFERRAL: No ref. provider found TOS: SUBJECTIVE: Patient returns after undergoing a second pneumatic dilation of his LINX device. The patient tell me he is doing very well at this time. He is on his second 10-day course of prednisone. He is tolerating regular diet. He has gained approximately 9 pounds. He denies any meaningful esophageal dysphagia. He did have some esophageal spasms in the first few days after the dilation. The spasms of essentially resolved. OBJECTIVE: BP (!) 144/85 Pulse 86 Ht 6' 1 Wt 76.3 kg (168 lb 4.8 oz) SpO2 94% BMI 22.20 kg/m ASSESSMENT: Status post pneumatic dilation of LINX PLAN: 1. Diet and activity as tolerated 2. Follow-up as needed documented in this encounter [facility] 07-21-2023 History of Present illness Narrative [facility] [address] ([address]) [facility] [address] [facility] [id number] Moe Bolivar is a 33 y.o. male being seen on 07/21/23 for Chief Complaint Patient presents with Follow-up Pneumatic dilation HPI: The patient returns for a 1 month follow-up visit after pneumatic dilation of his LINX. The patient says that his dysphagia has gotten ever so slightly worse over the last month. His esophageal spasms have almost completely gone away. He reports dysphagia of down solids and also reports that pace of eating affects the amount of dysphagia he experiences. He has had some heartburn which is most likely associated with delayed bolus clearance. Past Medical History: Diagnosis Date Asthma GERD (gastroesophageal reflux disease) Mitral valve prolapse Motion sickness Past Surgical History: Procedure Laterality Date COLONOSCOPY 2017 EGD N/A 12/29/2022 Procedure: ESOPHAGOGASTRODUODENOSCOPY WITH BIOPSY AND KEMP; Surgeon: Sukhjinder Thorpe MD; Location: Endo; Service: General Surgery ESOPHAGEAL MANOMETRY N/A 12/29/2022 Procedure: ESOPHAGEAL MANOMETRY; Surgeon: Sukhjinder Thorpe MD; Location: Endo; Service: General Surgery ESOPHAGOGASTRODUODENOSCOPY 2017 ESOPHAGOSCOPY N/A 06/08/2023 Procedure: ESOPHAGOSCOPY WITH PNEUMATIC BALLOON DILATION; Surgeon: Sukhjinder Thorpe MD; Location: Endo; Service: Gastroenterology PROLONGED ACID REFLUX TEST 48H PH N/A 12/29/2022 Procedure: PROLONGED ACID REFLUX TEST 48H PH; Surgeon: Sukhjinder Thorpe MD; Location: Endo; Service: General Surgery REPAIR HERNIA HIATAL WITH SPHINCTER AUGMENTATION ROBOTIC XI N/A 01/28/2023 Procedure: REPAIR HERNIA HIATAL WITH MESH AND LINX SPHINCTER AUGMENTATION ROBOTIC XI; Surgeon: Sukhjinder Thorpe MD; Location: Main OR; Service: Gen-Robotics VASECTOMY WISDOM TOOTH EXTRACTION No Known Allergies Current Outpatient Medications Medication Sig Dispense Refill albuterol 90 mcg/actuation inhaler PRN . No current facility-administered medications for this visit. Social History Tobacco Use Smoking status: Former Types: Cigarettes Smokeless tobacco: Never Tobacco comments: QUIT IN 2005 Vaping Use Vaping Use: Never used Substance Use Topics Alcohol use: Yes Comment: 1 BEER A WEEK Drug use: Never Family History Problem Relation Age of Onset No Known Problems Mother No Known Problems Father Prostate cancer Maternal Uncle REVIEW OF SYSTEMS Pertinent positives are listed in HPI, PMSH, SH, ALL, otherwise all systems reviewed below are negative. The following systems were reviewed: [x] Const (fevers, chills, wt. loss, fatigue) [x] CV (HTN, CP, LEMON, edema, DVT) [x] Resp (SOB, pleurisy, asthma, apnea) [x] GI (N, V, D, C, M, abd pain, appetite) [x] Musc (back pain, joint stiffness, gout) [x] Neuro (seizures, syncope, paralysis) [x] Psych (depression, anxiety) [x] Endo (hot/cold intol, polyuria[DM]) [x] Hem/Lymph (Anemia, LA, bleeding) [x] Allerg/Immun (seasonal, immuniz) [x] Eyes (diplopia, cataracts) [x] ENT/mouth (dysphagia, epistaxis) [x] (dysuria, hematuria) [x] Skin/Breast (moles, rash, lumps, nipple changes) Pertinent Positives: See HPI Pertinent Negatives: See HPI Physical Exam: BP 123/82 Pulse 69 Ht 6' 1 Wt 75.3 kg (166 lb) SpO2 96% BMI 21.90 kg/m Body mass index is 21.9 kg/m . Constitutional: Well nourished, well developed person in no acute distress. Ambulates without difficulty. Head: Atraumatic and normocephalic. Face: Within normal limits. Eyes: Pupils equal, round, reactive to light. Sclera white. Mouth: Moist mucous membranes, normal dentation. Neck: supple, trachea midline,no masses, no incisions. Lymphatic: No cervical or inguinal lymphadenopathy. Heart: Regular rate and rhythm. Lungs: Clear to auscultation. Abdomen: Soft, non-distended, non-tender, no heptasplenomegaly, no umbilica, incisional, femoral, or inguinal hernias. Pelvis: Stable, non-tender. Skin: Warm, moist, normal skin turgor. Peripheral Vascular: Palapable carotid, radial, and femoral pulses, no peripheral edema. Neuropsych: Alert and oriented, judgement and insight intact. Normal Gait. Assessment: 1. Esophageal dysphagia No orders of the defined types were placed in this encounter. Plan: Schedule esophagoscopy with pneumatic balloon dilation using 30 mm balloon. Risk, benefits, and alternatives were discussed with the patient detail prior to obtaining consent. Sukhjinder Thorpe MD documented in this encounter [facility] 06-23-2023 History of Present illness Narrative [facility] PATIENT: Moe Oyer DATE / TIME: 06/23/23 8:25 AM POS: Office AGE: 33 y.o. : 1990 RACE: [1] SEX: male PCP: Maximo Mejia MD REFERRAL: No ref. provider found TOS: SUBJECTIVE: The patient returns for follow-up after undergoing pneumatic dilation of his LINX. Overall he is doing much better. He denies heartburn, regurgitation, or meaningful esophageal dysphagia. The first week after dilation was perfect for him with no symptoms. Since then he has had a couple of issues with esophageal spasm. The spasms resolved with warm beverage. The patient does indicate there are certain foods such as mint which trigger mild burning in his esophagus. Overall at this point he feels like he is about 90% better. The patient does wonder if a second dilation would get him to 100% better. Overall the patient seems very happy with his results. He says that his presurgery symptoms are completely gone. OBJECTIVE: BP 124/80 Pulse 68 Ht 6' 1 Wt 76.2 kg (168 lb) SpO2 98% BMI 22.16 kg/m ASSESSMENT: Esophageal dysphagia status post pneumatic dilation of LINX, esophageal hypersensitivity PLAN: 1. Diet and activity as tolerated and avoid trigger foods 2. Follow-up in 1 month to reassess documented in this encounter [facility] 01-07-2023 History of Present illness Narrative [facility] [address] ([address]) [facility] [address] [facility] [id number] Moe Bolivar is a 32 y.o. male being seen on 01/07/23 for Chief Complaint Patient presents with Follow-up EGD, Kemp, manometry HPI: The patient returns for follow-up after undergoing a heartburn treatment clinic evaluation. He had an EGD which revealed an AFS grade 3, 1 cm, type I sliding hiatal hernia. Biopsies of the esophagus were negative for Cason's esophagus. Biopsies of the stomach were negative for H. pylori. Kemp pH testing was technically negative for abnormal distal esophageal acid exposure, however, the pattern is suspicious for reflux disease. High-resolution esophageal manometry revealed a short LES, normal LES resting pressure and relaxation, a 0.9 cm manometrically measured hiatal hernia, and normal esophageal body function. Incomplete bolus clearance was seen on 40% of the supine what swallows on impedance evaluation. The patient's primary symptoms include nausea, heartburn, and regurgitation. Acid suppression medications help with the heartburn but do not impact the nausea or regurgitation. He says he goes several weeks with no meaningful symptoms and then will have the acute onset of symptoms. He will then be sick for several days before he the symptoms resolved. He has made significant lifestyle and dietary modifications without improvement of his symptoms. He has tried multiple different PPIs and H2 blockers. None of the medications help with the regurgitation or nausea. Past Medical History: Diagnosis Date Asthma Past Surgical History: Procedure Laterality Date COLONOSCOPY 2017 EGD N/A 12/29/2022 Procedure: ESOPHAGOGASTRODUODENOSCOPY WITH BIOPSY AND KEMP; Surgeon: Sukhjinder Thorpe MD; Location: [facility]; Service: General Surgery ESOPHAGEAL MANOMETRY N/A 12/29/2022 Procedure: ESOPHAGEAL MANOMETRY; Surgeon: Sukhjinder Thorpe MD; Location: [facility]; Service: General Surgery ESOPHAGOGASTRODUODENOSCOPY 2017 PROLONGED ACID REFLUX TEST 48H PH N/A 12/29/2022 Procedure: PROLONGED ACID REFLUX TEST 48H PH; Surgeon: Sukhjinder Thorpe MD; Location: [facility]; Service: General Surgery No Known Allergies Current Outpatient Medications Medication Sig Dispense Refill albuterol 90 mcg/actuation inhaler No current facility-administered medications for this visit. Social History Tobacco Use Smoking status: Former Types: Cigarettes Smokeless tobacco: Never Substance Use Topics Alcohol use: Yes Comment: occasional Family History Problem Relation Age of Onset Prostate cancer Maternal Uncle REVIEW OF SYSTEMS Pertinent positives are listed in HPI, PMSH, SH, ALL, otherwise all systems reviewed below are negative. The following systems were reviewed: [x] Const (fevers, chills, wt. loss, fatigue) [x] CV (HTN, CP, LEMON, edema, DVT) [x] Resp (SOB, pleurisy, asthma, apnea) [x] GI (N, V, D, C, M, abd pain, appetite) [x] Musc (back pain, joint stiffness, gout) [x] Neuro (seizures, syncope, paralysis) [x] Psych (depression, anxiety) [x] Endo (hot/cold intol, polyuria[DM]) [x] Hem/Lymph (Anemia, LA, bleeding) [x] Allerg/Immun (seasonal, immuniz) [x] Eyes (diplopia, cataracts) [x] ENT/mouth (dysphagia, epistaxis) [x] (dysuria, hematuria) [x] Skin/Breast (moles, rash, lumps, nipple changes) Pertinent Positives: See HPI Pertinent Negatives: See HPI Physical Exam: BP 125/78 Pulse 70 Ht 6' 2.5 Wt 80.7 kg (178 lb) SpO2 96% BMI 22.55 kg/m Body mass index is 22.55 kg/m . Constitutional: Well nourished, well developed person in no acute distress. Ambulates without difficulty. Head: Atraumatic and normocephalic. Face: Within normal limits. Eyes: Pupils equal, round, reactive to light. Sclera white. Mouth: Moist mucous membranes, normal dentation. Neck: supple, trachea midline,no masses, no incisions. Lymphatic: No cervical or inguinal lymphadenopathy. Heart: Regular rate and rhythm. Lungs: Clear to auscultation. Abdomen: Soft, non-distended, non-tender, no heptasplenomegaly, no umbilica, incisional, femoral, or inguinal hernias. Pelvis: Stable, non-tender. Skin: Warm, moist, normal skin turgor. Peripheral Vascular: Palapable carotid, radial, and femoral pulses, no peripheral edema. Neuropsych: Alert and oriented, judgement and insight intact. Normal Gait. Assessment: 1. Hiatal hernia with GERD without esophagitis No orders of the defined types were placed in this encounter. Plan: I had a detailed discussion with the patient regarding her diagnosis. All treatment options were discussed in detail. At this point the patient would like to proceed with a robotic assisted laparoscopic hiatal hernia repair with mesh and LINX sphincter augmentation. Risk, benefits, and alternatives were discussed with the patient in detail prior to obtaining consent. Sukhjinder Thorpe MD documented in this encounter [facility] 11-18-2022 History of Present illness Narrative [facility] [address] ([address]) [facility] [address] [facility] [id number] Patient Name: Moe Bolivar Age: 32 y.o. Gender: male Referring Physician: No ref. provider found Chief Complaint Patient presents with Gastroesophageal Reflux HPI: Patient Primary Symptoms are: heartburn, regurgitation, chronic cough, nausea and vomiting, sore throat, and bloating Onset of Symptoms: Patient presents with complaints of reflux symptoms for the last 8 years. Today he complains of heartburn, regurgitation, cough, nausea, vomiting, bloating, and sore throat. He denies any dysphagia. He is currently not on any acid suppression therapy. He has been on PPI's in the past with no relief. He had a EGD about 5 years ago. I don't have any records to review. Frequency of Symptoms: Daily Severity of Symptoms: increasing in severity Sleep Disruption: no Aggravating Factors: Coffee, chili, and beans Alleviating Factors: Denies Medications Tried: Prilosec, Nexium How many years on a PPI: Not at this time has been on in the past HRQL SCORE: 47 Drug use: Denies Alcohol use: Rare Metal allergy: Denies Past Medical History: Diagnosis Date Asthma Past Surgical History: Procedure Laterality Date COLONOSCOPY 2018 ESOPHAGOGASTRODUODENOSCOPY 2018 No Known Allergies No current outpatient medications on file. No current facility-administered medications for this visit. Social History Tobacco Use Smoking status: Former Types: Cigarettes Smokeless tobacco: Never Substance Use Topics Alcohol use: Yes Comment: occasional Family History Problem Relation Age of Onset Prostate cancer Maternal Uncle REVIEW OF SYSTEMS Pertinent positives are listed in HPI, PMSH, SH, ALL, otherwise all systems reviewed below are negative. The following systems were reviewed: [x] Const (fevers, chills, wt. loss, fatigue) [x] CV (HTN, CP, LEMON, edema, DVT) [x] Resp (SOB, pleurisy, asthma, apnea) [x] GI (N, V, D, C, M, abd pain, appetite) [x] Musc (back pain, joint stiffness, gout) [x] Neuro (seizures, syncope, paralysis) [x] Psych (depression, anxiety) [x] Endo (hot/cold intol, polyuria[DM]) [x] Hem/Lymph (Anemia, LA, bleeding) [x] Allerg/Immun (seasonal, immuniz) [x] Eyes (diplopia, cataracts) [x] ENT/mouth (dysphagia, epistaxis) [x] (dysuria, hematuria) [x] Skin/Breast (moles, rash, lumps, nipple changes) Pertinent Positives: See HPI Pertinent Negatives: See HPI Physical Exam: BP 126/79 Pulse 83 Ht 6' 2.5 Wt 80.6 kg (177 lb 12.8 oz) SpO2 97% BMI 22.52 kg/m Body mass index is 22.52 kg/m . Constitutional: Well nourished, well developed person in no acute distress. Ambulates without difficulty. Head: Atraumatic and normocephalic. Face: Within normal limits. Eyes: Pupils equal, round, reactive to light. Sclera white. Mouth: Moist mucous membranes, normal dentation. Neck: supple, trachea midline,no masses, no incisions. Lymphatic: No cervical or inguinal lymphadenopathy. Heart: Regular rate and rhythm. Lungs: Clear to auscultation. Abdomen: Soft, non-distended, non-tender, no heptasplenomegaly, no umbilica, incisional, femoral, or inguinal hernias. Pelvis: Stable, non-tender. Skin: Warm, moist, normal skin turgor. Peripheral Vascular: Palapable carotid, radial, and femoral pulses, no peripheral edema. Neuropsych: Alert and oriented, judgement and insight intact. Normal Gait. Assessment: 1. Bloating 2. Heartburn 3. Gaseous regurgitation 4. Nausea and vomiting, unspecified vomiting type 5. Chronic sore throat 6. Chronic cough No orders of the defined types were placed in this encounter. Plan: I had a detailed discussion with the patient about diagnostic testing. Risk, benefits, and alternatives were discussed prior to obtaining consent. EGD with Biopsy, Kemp pH study with Interpretation, High resolution Manometry with Impedance and Interpretation Matthew Nichols CNP documented in this encounter [facility] Evaluation note No assessment information availa [facility] Work Phone: Evaluation note Diagnosis Heartburn- Primary Gaseous regurgitation Flatulence, eructation, and gas pain Nausea and vomiting, unspecified vomiting type Chronic cough Cough Chronic sore throat Chronic pharyngitis Heartburn Gaseous regurgitation Flatulence, eructation, and gas pain Chronic cough Cough Chronic sore throat Chronic pharyngitis Heartburn Gaseous regurgitation Flatulence, eructation, and gas pain Nausea and vomiting, unspecified vomiting type Chronic cough Cough Chronic sore throat Chronic pharyngitis [facility] Bloating- Primary Flatulence, eructation, and gas pain Heartburn Gaseous regurgitation Flatulence, eructation, and gas pain Nausea and vomiting, unspecified vomiting type Chronic sore throat Chronic pharyngitis Chronic cough Cough Heartburn Gaseous regurgitation Flatulence, eructation, and gas pain Chronic cough Cough Chronic sore throat Chronic pharyngitis Nausea and vomiting Nausea with vomiting Heartburn Gaseous regurgitation Flatulence, eructation, and gas pain Nausea and vomiting, unspecified vomiting type Chronic cough Cough Chronic sore throat Chronic pharyngitis [facility] Diagnosis Hiatal hernia with GERD without esophagitis- Primary [facility]* Diagnosis Dysphagia, unspecified type- Primary [facility] Diagnosis Esophageal dysphagia- Primary Dysphagia, pharyngoesophageal phase [facility] Pre-[facility] examination- Primary Hiatal hernia with GERD without esophagitis Asthma, unspecified asthma severity, unspecified whether complicated, unspecified whether persistent Mitral valve prolapse Mitral valve disorders Heartburn- Primary Regurgitation of food [facility] Diagnosis Pre-op examination- Primary Hiatal hernia with GERD without esophagitis Asthma, unspecified asthma severity, unspecified whether complicated, unspecified whether persistent Mitral valve prolapse Mitral valve disorders Esophageal dysphagia- Primary Dysphagia, pharyngoesophageal phase Status post robotic hiatal hernia repair with mesh and LINX sphincter augmentation Status post laparoscopic Marya fundoplication Status post laparoscopic Marya fundoplication- Primary Dysphagia [facility] Pre-op examination- Primary Hiatal hernia with GERD without esophagitis Asthma, unspecified asthma severity, unspecified whether complicated, unspecified whether persistent Mitral valve prolapse Mitral valve disorders Status post robotic hiatal hernia repair with mesh and LINX sphincter augmentation- Primary Esophageal dysphagia Dysphagia, pharyngoesophageal phase [facility] Diagnosis Pre-op examination- Primary Hiatal hernia with GERD without esophagitis Asthma, unspecified asthma severity, unspecified whether complicated, unspecified whether persistent Mitral valve prolapse Mitral valve disorders Pre-op examination- Primary Esophageal dysphagia Dysphagia, pharyngoesophageal phase Asthma, unspecified asthma severity, unspecified whether complicated, unspecified whether persistent Mitral valve prolapse Mitral valve disorders Esophageal spasm- Primary Dyskinesia of esophagus [facility] Diagnosis Pre-op examination- Primary Hiatal hernia with GERD without esophagitis Asthma, unspecified asthma severity, unspecified whether complicated, unspecified whether persistent Mitral valve prolapse Mitral valve disorders Pre-op examination- Primary Esophageal dysphagia Dysphagia, pharyngoesophageal phase Asthma, unspecified asthma severity, unspecified whether complicated, unspecified whether persistent Mitral valve prolapse Mitral valve disorders Encounter for surgical aftercare following surgery of digestive system- [facility] Diagnosis Pre-op examination- Primary Hiatal hernia with GERD without esophagitis Asthma, unspecified asthma severity, unspecified whether complicated, unspecified whether persistent Mitral valve prolapse Mitral valve disorders Pre-op examination- Primary Esophageal dysphagia Dysphagia, pharyngoesophageal phase Asthma, unspecified asthma severity, unspecified whether complicated, unspecified whether persistent Mitral valve prolapse Mitral valve disorders Postoperative follow-up- Primary Follow-up examination, following unspecified surgery [facility] Diagnosis Pre-op examination- Primary Hiatal hernia with GERD without esophagitis Asthma, unspecified asthma severity, unspecified whether complicated, unspecified whether persistent Mitral valve prolapse Mitral valve disorders Pre-op examination- Primary Esophageal dysphagia Dysphagia, pharyngoesophageal phase Asthma, unspecified asthma severity, unspecified whether complicated, unspecified whether persistent Mitral valve prolapse Mitral valve disorders Pharyngoesophageal dysphagia- Primary Dysphagia, pharyngoesophageal phase documented in this [facility] Summary Purpose Family History No Family History Records Found Relationship Condition Age at Onset Recorded Date/T kenan father Hypertension Unknown grandfather Diabetes mellitus Unknown Coronary artery disease Unknown grandfather Cardiac disease Unknown Advance Directives No Advanced Directives Records FoundDocuments on File Type Date Recorded 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 Directives 01/20/2023 spouse FM [place] to care for patient Documents on File Type Date Recorded 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 Directives 01/20/2023 spouse FM [place] to care for patient Chief Complaint and Reason for Visit Chief Complaint LABS AND XRAY- ABDOM INAL BLOATING Chief Complaint MVP Additional Source Comments (unrecognized sect ion and content) No Status Records FoundNo Status Records FoundNo Status Records FoundNo Status Records FoundNo Status Records Found INFORMATION SOURCE (unrecogn ized section and content) DATE CREATED AUTHOR 04/20/2018 [facility] DATE CREATED AUTHOR AUTHOR'S ORGANIZ ATION 05/24/2020 [facility] DATE CREATED AUTHOR AUTHOR'S ORGANIZ ATION 02/20/2025 [facility] DATE CREATED AUTHOR AUTHOR'S ORGANIZ ATION 03/29/2025 [facility] DATE CREATED AUTHOR AUTHOR'S ORGANIZ ATION 08/31/2025 [facility] Goals (unrecognized section and content) Goals may be documented in a n alternate sectionGoals may be documented in an alternate sectionGoals may be documented in an alternate section Care Teams (unrecognized sec tion and content) Environmental Director Relationship Specialty Start Date End Date Maximo Mejia MD [address] [facility] [address] [place] [address] PCP - General Family Medicine 11/13/22 Environmental Director Relationship Specialty Start Date End Date Maximo Mejia MD [address] [facility] [address] [place] [address] PCP - General Family Medicine 11/13/22 Environmental Director Relationship Specialty Start Date End Date Maximo Mejia MD [address] [facility] [address] [place] [address] PCP - General Family Medicine 11/13/22 Environmental Director Relationship Specialty Start Date End Date Maximo Mejia MD [address] [facility] [address] [place] [address] PCP - General Family Medicine 11/13/22 Team Status: Active Member Role Status Dates Dr. Fariha Shin MD Family Provider Active Dr. Daniel Mejia MD Primary Care Provider Activ e Team Status: Active Member Role Status Dates Dr. Daniel Mejia MD Primary Care Provider Activ e Dr. Harrison Ramires MD Attending Provider Active Team Status: Inactive Member Role Status Dates Dr. Daniel Mejia MD Primary Care Provider, Attending Provider, Referring Provider Active Environmental Director Relationship Specialty Start Date End Date Maximo Mejia MD [address] [place] [address] PCP - General Family Medicine 11/13/22 Environmental Director Relationship Specialty Start Date End Date Maximo Mejia MD [address] [place] [address] PCP - General Family Medicine 11/13/22 Team Status: Inactive Member Role Status Dates Dr. Daniel Mejia MD Primary Care Provider, Atte nding Provider Active Environmental Director Relationship Specialty Start Date End Date Maximo Mejia MD [address] [place] [address] PCP - General Family Medicine 11/13/22 Environmental Director Relationship Specialty Start Date End Date Maximo Mejia MD [address] [place] [address] PCP - General Family Medicine 11/13/22 Environmental Director Relationship Specialty Start Date End Date Maximo Mejia MD [address] [place] [address] PCP - General Family Medicine 11/13/22 Environmental Director Relationship Specialty Start Date End Date Maximo Mejia MD [address] [place] [address] PCP - General Family Medicine 11/13/22 Environmental Director Relationship Specialty Start Date End Date Maximo Mejia MD [address] [place] [address] PCP - [facility] Medicine 11/13/22 Environmental Director Relationship Specialty Start Date End Date Maximo Mejia MD [address] [place] [address] PCP - General [facility] Medicine 11/13/22 Environmental Director Relationship Specialty Start Date End Date Maximo Mejia MD [address] [place] [address] PCP - [facility] Medicine 11/13/22 Environmental Director Relationship Specialty Start Date End Date Maximo Mejia MD [address] [place] [address] PCP - [facility] Medicine 11/13/22 Environmental Director Relationship Specialty Start Date End Date Maximo Mejia MD [address] [place] [address] PCP - General Family Medicine 11/13/22 Reason for Visit (unrecogniz ed section and content) Reason Comments Gastroesophageal Reflux Reason Comments Follow-up EGD, Kemp, manometr y Reason Comments Follow-up Pneumatic dilation Reason Comments Follow-up Esophagram Reason Comments Follow-up Intraesophageal regu rgitation Reason Comments Follow-up ESOPHAGOSCOPY WITH P NEUMATIC BALLOON DILATION Reason Comments Post-op Reason Comments Post-op S/p REVISION OF LINX SPHINCTER AUGMENTATION DEVICE ROBOTIC FOR RECORDS PERTAINING TO PATIENTS WHO ARE OR HAVE BEEN ENROLLED IN A CHEMICAL DEPENDENCY/SUBSTANCEABUSE PROGRAM, SOME INFORMATION MAY BE OMITTED. This clinical summary was aggregated from multiple sources. Caution should be exercised in using it in the provision of clinical care. This summary normalizes information from multiple sources, and as a consequence, information in this document may materially change the coding, format and clinical context of patient data. In addition, data may be omitted in some cases. CLINICAL DECISIONS SHOULD BE BASED ON THE PRIMARY CLINICAL RECORDS. [employer] [facility]. provides no warranty or guarantee of the accuracy or completeness of information in this document.
[2025-10-08] MEDS: Lactated Ringers 1,000 ML 15 ML IV (06:13)
--- NOTE | 2025-10-08 06:18 | PCM.PRE.AN2 ---
ASA Classification* ASA Classification ASA Classification: 2 Assessment & Plan Anesthesia* Anesthesia Assessment Anesthesia Assessment: Discussed sedation and/or anesthesia options, risks, benefits, and alternatives with patient/parents/legal guardian/POA. Questions invited. The patient/parents/legal guardian/POA seems to understand and agrees to proceed with anesthesia plan. Reviewed the physical assessment, medical history, allergy history and patient home medications list prior to surgery/procedure/anesthetic and documented any changes. Performed airway and anesthesia risk assessments. Anesthesia Type Anesthesia Type: MAC History Source History Obtained from:: Patient and Chart Anesthesia Focused Assessment* Temperature: 97.8 F Pulse Rate: 73 Blood Pressure: 129/78 Respiratory Rate: 16 Pulse Ox: 100 Oxygen Delivery Method: Room Air Airway Assessment Mouth opens: >3 cm Mallampati Score: I Teeth Condition: Intact Neck Range of motion (ROM): Full ROM Labs Anesthesia Preop lab: CBC WBC, (4.4-11.0) 6.1 K/mm3 08/29/25, 16:15 RBC, (4.6-6.2) 4.84 M/mm3 08/29/25, 16:15 Hgb, (13.0-16.5) 15.1 g/dL 08/29/25, 16:15 Hct, (40-54) 40.9 % 08/29/25, 16:15 Plt Count, (150-450) 243 K/mm3 08/29/25, 16:15 CHEMISTRY Potassium, (3.5-5.1) 4.4 mmol/L 10/05/23, 08:51 Sodium, (136-145) 140 mmol/L 10/05/23, 08:51 Magnesium, (1.6-2.6) 2.4 mg/dL 10/05/23, 08:51 BUN, (7-18) 17 mg/dL 10/05/23, 08:51 Creatinine, (0.70-1.30) 1.11 mg/dL 10/05/23, 08:51 Glucose, (74-106) 93 mg/dL 10/05/23, 08:51 TSH, (0.300-4.200) 1.250 uIU/mL 08/29/25, 16:15 COAG Pre-Assessment Diagnosis/Proposed Procedure Planned Operative Procedure(s): COLONOSCOPY Anesthesia History 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 When Was Last Pacemaker Check QUESTION #4 FULL TEXT: You/Your Family Experience fever (hyperthermia) with Anesthesia Last Oral Intake Last Oral intake: Last Oral Intake NPO since 02:30 10/08/25 06:02 Meds taken in AM with sips of No 10/08/25 06:02 water? 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 - bale stacker Female No 10/04/25 09:30 HX of Motion Sickness Yes 10/04/25 09:30 HX of N/V After Surgery Yes 10/04/25 09:30 Non-Smoker Yes 10/04/25 09:30 Duration of Surgery greater No 10/04/25 09:30 than 60 minutes Number of Risk Factors 3 10/04/25 09:30 PONV Score Moderate Risk 10/04/25 09:30 Height & Weight Height & Weight: Anesthesia: Height & Weight Height 6 ft 1 in 10/08/25 06:02 Weight: 79 kg 10/08/25 06:02 Body Mass Index (BMI) 22.9 10/08/25 06:02 Respiratory Assessment Respiratory Assessment - bale stacker: Respiratory Tract Infection Hx - bale stacker Hx Respiratory Tract Infection No 10/04/25 09:30 STOP Sleep Apnea STOP Sleep Apnea - bale stacker: STOP Sleep Apnea - bale stacker Hx Hypertension No 10/04/25 09:30 Hx Sleep Apnea No 10/04/25 09:30 CPAP BIPAP Do you snore loudly (louder No 10/04/25 09:30 than talking or can be heard Do you often feel tired/ No 10/04/25 09:30 fatigued/ sleepy during daytime? Has anyone observed you stop No 10/04/25 09:30 breathing during sleep? STOP Results Negative 10/04/25 09:30 QUESTION #5 FULL TEXT : Do you snore loudly (louder than talking or can be heard through closed doors)? 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 Specify any problems Hx of Preganancy in last 3 N/A 10/04/25 09:30 Months Nurse Filling Out Transfusion VCHRISTIN 10/04/25 09:30 & Questions: Date: 10/04/25 10/04/25 09:30 Time: 10/04/25 09:30 Patient unable to answer at this time (ie. confused, unrespo /Reproduction History /Reproductive History - bale stacker: /Reproductive Hx- bale stacker Hx Now Gestational Age (in weeks): EDC: Hx Hx Para Hx Section SAB Does the father of the baby or his family experience fever w Father of the baby Malignant Hypertension history comment Active Medications Active Medications: Current Medications Generic Name Dose Route Start Last Admin Trade Name Freq PRN Reason Stop Dose Admin Lactated Ringer's 1,000 mls @ 15 mls/hr 10/08/25 06:00 10/08/25 06:13 IV 15 mls/hr .Q48H KATY Administration PFSH Medical History Gastric reflux Non-smoker History of Holter monitoring History of echocardiogram Cardiology follow-up encounter Mitral valve problem Asthma Mild mitral valve prolapse Exercise-induced asthma GERD (gastroesophageal reflux disease) Home Medications ?Medication ?Instructions ?Recorded ?Last Taken ?Type albuterol sulfate 90 mcg/actuation 1 inh inhalation Q6H 10/04/25 Unknown History breath activated powder inhaler prednisone 50 mg tablet 50 mg PO DAILY 10/04/25 Unknown History Allergy/AdvReac Type Severity Reaction Status Date / Time No Known Allergies Allergy Verified 10/08/25 06:01 Family History Father Hypertension Grandfather Diabetes CAD (coronary artery disease) Grandfather Heart disease Grandmother Osteoporosis Surgical History History of esophagogastroduodenoscopy (EGD) H/O insertion of LINX reflux management system H/O vasectomy History of repair of hiatal hernia Social History Smoking Status: Former smoker how long ago did patient quit smoking: Age 16 alcohol intake: current alcohol intake frequency: a few times a month substance use type: does not use what type of physical activity do you participate in: walking frequency: 5-6 times per week Review of Systems (Anesthesia) ROS Narrative System reviewed and no additional complaints, except as documented. Physical Exam Resp clear to auscultation bilaterally
--- NOTE | 2025-10-08 06:30 | COLBX_PTH ---
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 Lui Stone DO : 1990 BED: DIS: 10/08/2025 SPEC #: [id number] RECD: 10/08/25 09:44 STATUS: DANIEL REStuart #: [id number] JAIRO: 10/08/25 06:[address]: Lui Stone DEPT: SURGICAL PATHOLOGY RECD BY: Rony Ribeiro ENTERED: 10/08/25 13:40 SP TYPE: COLON BX YAO DR: Dr. Taye Mejia MD Tissues: A - Ileum, NOS B - COLON BIOPSY Procedures: Surgery Specimen Level IV HEADER OPERATION: Colonoscopy with biopsy PRE-OP DIAGNOSIS: Nausea / vomiting, GERD, alternating constipation and diarrhea TISSUE SUBMITTED: A- Terminal ileum biopsy, B- Random colon biopsy MICROSCOPIC DIAGNOSIS A. Small intestine, terminal ileum, biopsy: - Prominent mucosal lymphoid tissue, favor reactive - see note. Note: The prominent lymphoid tissue is favored to reflect a reactive process. However, if clinical concern for a lymphoproliferative disorder is high, please contact the Laboratory to request additional evaluation. B. Colon, random, biopsy: - No specific pathologic change. - The histologic features of microscopic colitis are not demonstrated. MICROSCOPIC DESCRIPTION Slides are reviewed. GROSS DESCRIPTION A. Received in fixative is one container labeled with the patient's name and designated Terminal ileum biopsy. The specimen consists of multiple irregular fragments of [place] tissue that in aggregate measure 0.9 x 0.4 x 0.1 cm. The specimen is totally submitted in one cassette. B. Received in fixative is one container labeled with the patient's name and designated Random colon biopsy. The specimen consists of multiple irregular fragments of camargo tissue that in aggregate measure 1.8 x 0.9 x 0.1 cm. The specimen is totally submitted in one cassette. MO 10/08/2025 CPT:28323y9
--- NOTE | 2025-10-08 06:43 | HP.PCM_ITS ---
HPI - General General Date of Admission: 10/08/25 Date of Service: 10/08/25 Chief Complaint: abdominal pain with constipation and diarrhea HPI Narrative Patient with a past medical history of GERD secondary to hiatal hernia which was surgically repaired and has had a Linx procedure in January 2025. This has improved his reflux symptoms however he continues to have nausea, early satiety, bloating and constipation alternating with loose stool. Nausea is a few times per week typically after eating dinner. Bloating happens after each meal. Patient will have times of constipation with a bowel movement every few days and then sometimes loose stools. Certain food triggers include beans, mint and steak which he avoids. He had a colonoscopy around 10 years ago which was inconclusive. [facility] Medical History Gastric reflux Non-smoker History of Holter monitoring History of echocardiogram Cardiology follow-up encounter Mitral valve problem Asthma Mild mitral valve prolapse Exercise-induced asthma GERD (gastroesophageal reflux disease) Home Medications ?Medication ?Instructions ?Recorded ?Last Taken ?Type albuterol sulfate 90 mcg/actuation 1 inh inhalation Q6 H 10/04/25 Unknown History breath activated powder inhaler prednisone 50 mg tablet 50 mg PO DAILY 10/04/25 Unkn own History Allergy/AdvReac Type Severity Reaction Status Date / Time No Known Allergies Allergy Verified 10/08/25 06:01 Family History Father Hypertension Grandfather Diabetes CAD (coronary artery disease) Grandfather Heart disease Grandmother Osteoporosis Surgical History History of esophagogastroduodenoscopy (EGD) H/O insertion of LINX reflux management system H/O vasectomy History of repair of hiatal hernia Social History Smoking Status: Former smoker how long ago did patient quit smoking: Age 16 alcohol intake: current alcohol intake frequency: a few times a month substance use type: does not use what type of physical activity do you participate in: walking frequency: 5-6 times per week ROS Constitutional Constitutional: Denies fatigue, fever(s), poor appetite, weight gain or weight loss Gastrointestinal Gastrointestinal: Denies belching, bloating, change in bowel habits, change in stool character, chewing difficulty, coffee ground emesis, constipation, cramping, diarrhea, dyspepsia, dysphagia, early satiety, excessive flatus, fecal incontinence, heartburn, hematemesis, hematochezia, hemorrhoids, loose stools, melena, nausea, odynophagia, rectal bleeding, tenesmus, vomiting or weight changes Vital Signs Vital Signs Vital Signs: 10/08/25 06:02 10/08/25 06:02 10/08/25 06:02 Temperature 97.8 F Temperature Source Temporal Pulse Rate 73 Respiratory Rate 16 Respiratory Pattern Normal Blood Pressure 129/78 H Blood Pressure Mean 95 Blood Pressure Source Monitor Blood Pressure Position Semi-Fowlers Blood Pressure Location Left Arm Baseline BP 129/78 Pulse Ox 100 Oxygen Delivery Method Room Air 10/08/25 06:24 Temperature 97.8 F Temperature Source Pulse Rate 73 Respiratory Rate 16 Respiratory Pattern Blood Pressure 129/78 H Blood Pressure Mean Blood Pressure Source Blood Pressure Position Blood Pressure Location Baseline BP Pulse Ox 100 Oxygen Delivery Method Room Air Weight Weight: 174 lb 2.643 oz Body Mass Index (BMI) 22.9 Physical Exam Const alert, oriented x3, no apparent distress and healthy appearing General Appearance: cooperative GI normal to inspection, nondistended, normoactive bowel sounds, soft to palpation, non-tender and non-distended Percussion: normal to percussion Rectal Exam: deferred Assessment & Plan Assessment/Plan (1) Nausea & vomiting: (2) GERD (gastroesophageal reflux disease): (3) Alternating constipation and diarrhea: PLAN: Assessment and Plan Assessment and Plan (1) GERD (gastroesophageal reflux disease): Status: Acute Plan: Moisés is a 35-year-old male patient with past medical history mitral valve prolapse, GERD and seasonal allergies here today for evaluation. Patient underwent hiatal hernia repair and Linx procedure in January 2025. Since then he has had improved heartburn symptoms but continues to have nausea, bloating, e thomas satiety and alternating bowel habits. Recommended stool testing for infection or inflammation. Celiac disease panel ordered. He will undergo gastric emptying study. Patient will also undergo repeat colonoscopy for evaluation of his colon. Testing and procedures have been negative in the past and therefore feel his symptoms are likely related to irritable bowel syndrome. Prescribed a 2-week course of Xifaxan for treatment of IBS?D. - Stool testing for infection or inflammation - Celiac panel - Gastric emptying study - Trial 2-week course of Xifaxan - Colonoscopy - Follow-up Note: Portions of this note may have been selectively carried forward from previous documentation to ensure continuity and accuracy of the clinical record. All imported information has been reviewed and updated as necessary to reflect the current patient status, findings, and clinical decision-making for this encounter. [employer]Generator speech recognition licensed club manager software was used to create portions of this document. Sound alike and misspelled words, as well as other licensed club manager errors may be contained in the documentation. (2) Nausea & vomiting: Status: Acute (3) Alternating constipation and diarrhea: Status: Acute Orders: Orders Gastric Emptying Study Today K21.9 - Gastro-esophageal reflux disease without esophagitis, R11.2 - Nausea with vomiting, unspecified Calprotectin, Stool Today K21.9 - Gastro-esophageal reflux disease without esophagitis, R11.2 - Nausea with vomiting, unspecified, R19.8 - Other specified symptoms and signs involving the digestive system and abdomen Celiac Disease Profile Today K21.9 - Gastro-esophageal reflux disease without esophagitis, R11.2 - Nausea with vomiting, unspecified, R19.8 - Other specified symptoms and signs involving the digestive system and abdomen ENTERIC PATHOGEN PANEL STOOL Today K21.9 - Gastro-esophageal reflux disease without esophagitis, K58.9 - Irritable bowel syndrome, unspecified, R11.2 - Nausea with vomiting, unspecified, R19.8 - Other specified symptoms and signs involving the digestive system and abdomen CDIFF (PCR) Today K21.9 - Gastro-esophageal reflux disease without esophagitis, R11.2 - Nausea with vomiting, unspecified, R19.8 - Other specified symptoms and signs involving the digestive system and abdomen OVA+PARA w/Giardia EIA [id number] Today K21.9 - Gastro-esophageal reflux disease without esophagitis, R11.2 - Nausea with vomiting, unspecified, R19.8 - Other specified symptoms and signs involving the digestive system and abdomen Medications: New rifaximin (Xifaxan) 550 mg PO TID 42 tabs 3RF 14 days ]
--- NOTE | 2025-10-08 07:23 | PCM.POST.ANE ---
Anesthesia: Postop Eval I Current Vital Signs Temperature: 97.7 F Pulse Rate: 16 Blood Pressure: 119/76 Respiratory Rate: 16 Pulse Ox: 100 Oxygen Delivery Method: Room Air Assessment Airway patent: Yes Spontaneous unlabored respirations: Yes Mental status: Awake nausea: No Vomiting: No Anesthesia Complication: No Fluid Hydration Crystalloid volume administer (ml): 700 Total IV fluid infused: 700 Progress Note Anesthesia document: Postop Eval 1 completed: Yes
--- NOTE | 2025-10-08 07:25 | OP.PROVAT_ITS ---
10/08/2025 Daniel Mejia [address] [place] [address] Re : Colonoscopy procedure for Moisés Bolivar Dear Dr. Mejia This procedure was performed on Wednesday, October 08, 2025. My impressions and recommendations are as follows: Impressions : - Preparation of the colon was poor. - Stool in the entire examined colon. Biopsied. - Moderate inflammation was found in the ileum secondary to ileitis. Biopsied. Recommendations : - Patient has a contact number available for emergencies. The signs and symptoms of potential delayed complications were discussed with the patient. Return to normal activities tomorrow. Written discharge instructions were provided to the patient. - Resume previous diet. - Continue present medications. - Await pathology results. - Repeat colonoscopy for surveillance based on pathology results. My findings are described in the full procedure note, which is enclosed. If I can be of further assistance, please feel free to contact me at . Sincerely, Lui Stone, 10/08/2025 7:24:11 AM This report has been signed electronically.
--- NOTE | 2025-10-08 07:25 | OP.COLON_ITS ---
Patient Name: Moisés Bolivar Procedure Date: 10/08/2025 6:40 AM Date of : 1990 Age: 35 Procedure: Colonoscopy Indications: Chronic diarrhea Providers: Lui Stone DO Referring MD: Daniel Mejia Medicines: Monitored Anesthesia Care Patient Profile: This is a 35 year old male. Refer to note in patient chart for documentation of history and physical. Last Colonoscopy: more than 10 years ago. Complications: No immediate complications. Procedure: Pre-Anesthesia Assessment: - Prior to the procedure, a History and Physical was performed, and patient medications and allergies were reviewed. The patient is competent. The risks and benefits of the procedure and the sedation options and risks were discussed with the patient. All questions were answered and informed consent was obtained. Patient identification and proposed procedure were verified by the physician in the pre-procedure area. Mental Status Examination: alert and oriented. Airway Examination: normal oropharyngeal airway and neck mobility. Respiratory Examination: clear to auscultation. CV Examination: normal. Prophylactic Antibiotics: The patient does not require prophylactic antibiotics. Prior Anticoagulants: The patient has taken no anticoagulant or antiplatelet agents. ASA Grade Assessment: II - A patient with mild systemic disease. After reviewing the risks and benefits, the patient was deemed in satisfactory condition to undergo the procedure. The anesthesia plan was to use monitored anesthesia care (MAC). Immediately prior to administration of medications, the patient was re-assessed for adequacy to receive sedatives. The heart rate, respiratory rate, oxygen saturations, blood pressure, adequacy of pulmonary ventilation, and response to care were monitored throughout the procedure. The physical status of the patient was re-assessed after the procedure. After I obtained informed consent, the scope was passed under direct vision. Throughout the procedure, the patient's blood pressure, pulse, and oxygen saturations were monitored continuously. The colonoscope was introduced through the anus and advanced to the terminal ileum. The colonoscopy was performed without difficulty. The patient tolerated the procedure well. The quality of the bowel preparation was poor. The ileocecal valve, appendiceal orifice, and rectum were photographed. Scope In: 6:59:50 AM Scope Withdrawal Time 0 hours 10 minutes 40 seconds Scope Out: 7:16:02 AM Total Procedure Duration Time 0 hours 16 minutes 12 seconds Findings: The perianal and digital rectal examinations were normal. Stool was found in the entire colon. Lavage of the area was performed using copious amounts, resulting in incomplete clearance with continued poor visualization. Biopsies were taken with a cold forceps for histology. Verification of patient identification for the specimen was done. Estimated blood loss was minimal. Patchy moderate inflammation characterized by congestion (edema), erosions and erythema was found in the terminal ileum. Biopsies were taken with a cold forceps for histology. Verification of patient identification for the specimen was done. Estimated blood loss was minimal. Impression: - Preparation of the colon was poor. - Stool in the entire examined colon. Biopsied. - Moderate inflammation was found in the ileum secondary to ileitis. Biopsied. Recommendation: - Patient has a contact number available for emergencies. The signs and symptoms of potential delayed complications were discussed with the patient. Return to normal activities tomorrow. Written discharge instructions were provided to the patient. - Resume previous diet. - Continue present medications. - Await pathology results. - Repeat colonoscopy for surveillance based on pathology results. Procedure Code(s): --- Professional --- 10835, Colonoscopy, flexible; with biopsy, single or multiple CPT copyright 2021 [employer]. All rights reserved. The codes documented in this report are preliminary and upon braille coder review may be revised to meet current compliance requirements. Lui Stone DO 10/08/2025 7:24:11 AM This report has been signed electronically. Number of Addenda: 0 Note Initiated On: 10/08/2025 6:40 AM
--- NOTE | 2025-10-08 14:59 | PCM.POSTANE2 ---
Anesthesia Postop Eval I Sum Postop Eval Completion status Anesthesia document: Postop Eval 1 completed: Yes Anesthesia Postop Eval I Summary Anesthesia Postop Eval I Summary: Anesthesia Postop Eval I: Assessment Summary Airway patent Yes 10/08/25 07:24 [email or web address] Spontaneous unlabored Yes 10/08/25 07:24 [email or web address] respirations Mental status Awake 10/08/25 07:24 [email or web address] nausea No 10/08/25 07:24 [email or web address] Vomiting No 10/08/25 07:24 [email or web address] Anesthesia Postop Eval I: Fluid Summary Crystalloid volume administer 700 10/08/25 07:24 [email or web address] (ml) Colloids volume administered ( ml) Blood Product volume administered (ml) Total IV fluid infused 700 10/08/25 07:24 [email or web address] Anesthesia Postop Eval I: Summary Notes Anesthesia Complication No 10/08/25 07:24 [email or web address] Anesthesia Complication Comment: Post-operative progress note Anesthesia: Postop Eval II Evaluation Mental status: Awake and Calm Pain Level: 0 nausea: No Vomiting: No Complications Anesthesia Complication: No
== END 2025-10-08 07:53 | disposition home or self-care (01) ==
LOC: EN 05:37 → AC 05:37
PROVIDERS: PCP Family Medicine; Referring Provider Family Medicine; Visit Provider Internal Medicine Gastroenterology
PROC: 0DJD8ZZ Inspection of Lower Intestinal Tract, Via Natural or Artificial Opening Endoscopic (ICD-10-PCS; CPT 45378; principal; 2025-10-08 06:25)
DX: K52.9 Noninfective gastroenteritis and colitis, unspecified (principal); K21.9 Gastro-esophageal reflux disease without esophagitis; K59.00 Constipation, unspecified; Z87.891 Personal history of nicotine dependence; K44.9 Diaphragmatic hernia without obstruction or gangrene; J45.909 Unspecified asthma, uncomplicated; R11.2 Nausea with vomiting, unspecified; R19.8 Other specified symptoms and signs involving the digestive system and abdomen
CPT/HCPCS: 45380; 88305; J2405

== ENCOUNTER 2025-10-23 09:18 | Emergency (ER) | payer OTHER, SELFPAY ==
[2025-10-23 09:19] VITALS: BP 144/98; PULSE 89; RESP 13; TEMP 36.7; O2SAT 100; BMI 23.7
--- NOTE | 2025-10-23 09:25 | RAD_ITS ---
PROCEDURE: THORACIC SPINE 2 VIEWS 10/23/2025 REASON FOR EXAM: FALL/INJURY TECHNIQUE: Procedure Code: RADSPT2 Modality: DX Procedure: THORACIC SPINE 2 VIEWS FINDINGS: Mild anterior wedging of T7 again identified, without significant osseous retropulsion identified. No new fracture. Mild diffuse thoracic spondylosis. No spondylolisthesis. Mild midthoracic dextroscoliosis again identified. Visualized lung lara grossly clear. RAD/Thoracic Spine 2 Views IMPRESSION: Unchanged appearing mild anterior wedging of T7. Mild spondylosis and dextroscoliosis again identified. Reading Location: [facility]
--- NOTE | 2025-10-23 09:26 | RAD_ITS ---
PROCEDURE: CHEST PA AND LATERAL 10/23/2025 REASON FOR EXAM: BACK PAIN/FALL, SOB TECHNIQUE: Procedure Code: RADCXR Modality: DX Procedure: CHEST PA AND LATERAL COMPARISON: PA chest 07/31/2022. RAD/Chest PA and Lateral IMPRESSION: No pleural effusion or pneumothorax is noted. Lungs appear clear. The cardiomediastinal silhouette is within the normal range, and unchanged. Mild thoracic spine degenerative changes are noted. Mild wedge compression (from the superior endplate) of a midthoracic vertebral body is seen, without apparent subluxation. Reading Location: [place] [id number]
--- NOTE | 2025-10-23 09:26 | ED.VIS.FALL ---
HPI HPI - Fall History of Present Illness Chief Complaint: Fall Informant: patient Narrative Narrative: Patient is a 35-year-old healthy male presenting with back pain and dyspnea following a fall. - Slipped on a step inside his house, landing on the center of his back against the edge of the step. - Reports severe pain in the thoracic region, with discomfort radiating around the ribs. - Experiencing mild dyspnea and increased back pain with respiration. - Denies numbness in legs or arms. - Mild neck discomfort, but primary pain is in the thoracic area. - Able to ambulate; denies lower extremity weakness. - Has a LINX device for acid reflux management. [facility] Medical History Gastric reflux Non-smoker History of Holter monitoring History of echocardiogram Cardiology follow-up encounter Mitral valve problem Asthma Mild mitral valve prolapse Exercise-induced asthma GERD (gastroesophageal reflux disease) Home Medications ?Medication ?Instructions ?Recorded ?Last Taken ?Type rifaximin 550 mg tablet (Xifaxan) 550 mg PO TID 10/23/25 Unknown History tramadol 50 mg tablet 50 mg PO Q6H PRN pain 3 days #12 10/23/25 Unknown Rx tabs Allergy/AdvReac Type Severity Reaction Status Date / Time No Known Allergies Allergy Verified 10/23/25 09:24 Family History Father Hypertension Grandfather Diabetes CAD (coronary artery disease) Grandfather Heart disease Grandmother Osteoporosis Surgical History History of esophagogastroduodenoscopy (EGD) H/O insertion of LINX reflux management system H/O vasectomy History of repair of hiatal hernia Social History Smoking Status: Former smoker how long ago did patient quit smoking: Age 16 alcohol intake: current alcohol intake frequency: a few times a month substance use type: does not use what type of physical activity do you participate in: walking frequency: 5-6 times per week ROS ROS ED Constitutional Constitutional ED: Denies chills or fever(s) Eyes Eyes: Denies change in vision or diplopia ENT ENT ED: Denies ear pain, epistaxis, facial pain or rhinorrhea Cardiovascular Cardiovascular: Denies chest pain or palpitations Respiratory/Chest Respiratory/Chest: Reports dyspnea; Denies cough Gastrointestinal Gastrointestinal: Denies abdominal pain, diarrhea, melena, nausea or vomiting Genitourinary Genitourinary ED: Denies dysuria or hematuria Musculoskeletal Musculoskeletal: Reports back pain; Denies extremity pain or neck pain Integumentary Denies abscess, Abrasions, laceration or rash Neurologic Neurologic: Denies confusion, headache(s), paresthesias or weakness EXAM Physical Exam Const Vital Signs: 10/23/25 09:19 10/23/25 09:25 10/23/25 10:02 Temperature 98.0 F Temperature Source Oral Pulse Rate 89 88 Respiratory Rate 13 15 Respiratory Effort Short of Breath Blood Pressure 144/98 H 128/75 H Blood Pressure Mean 113 92 Pulse Ox 100 100 Oxygen Delivery Method Room Air Room Air Room Air Oxygen Flow Rate (L/min) 100 10/23/25 10:58 10/23/25 11:25 Temperature 97.9 F Temperature Source Pulse Rate 82 75 Respiratory Rate 16 16 Respiratory Effort Blood Pressure 126/79 H 135/98 H Blood Pressure Mean 94 110 Pulse Ox 97 99 Oxygen Delivery Method Room Air Oxygen Flow Rate (L/min) Positive well nourished and well developed General Appearance ED: well developed and NAD HEENT Reports TM's clear and nasal mucous membranes and turbinates normal atraumatic Face and Sinus: Negative for facial tenderness Tympanic Membrane ED: Yes TM's clear Eyes PERRL and EOMs intact bilaterally Visual Acuity: other Other Details: no entrapment or pain with extraocular movements Neck full ROM and supple Neck Narrative: Not able to reproduce any neck discomfort with palpation and range of motion which is full General: Negative for tenderness Chest Wall inspection of chest normal and palpation of chest normal Chest: symmetrical chest wall rise; Negative for crepitus or tenderness Resp normal respiratory effort and clear to auscultation bilaterally Resp Narrative: Breath sounds are equal bilaterally. Trachea midline. Percussion: other equal BS bilat Cardio no murmurs Rate: regular rate Rhythm: regular rhythm GI normal to inspection, nondistended, normoactive bowel sounds, soft to palpation and non-tender Back/Spine Back/Spine Narrative: Tenderness throughout the mid thoracic spine, with nontender areas at the most cranial and caudal aspects of the thoracic spine. Normal inspection no palpable step-offs. Cervical Spine: Negative for cervical spine tenderness Thoracic Spine / Upper Back: ROM limited, pain with ROM and thoracic spinal tenderness Lumbar Spine / Lower Back: Negative for lumbar spinal tenderness Extremity normal to inspection and full ROM General Extremety ED: Negative for tenderness Neuro oriented x3, CN's II-XII intact bilaterally, moves all extremities, no focal motor deficits and no sensory deficits noted Moran Coma Scale: document GCS findings Spontaneous Obeys Commands Oriented 15 Sensorium / Orientation: awake and alert Psych mental status grossly normal and thought process normal Skin no wounds Lesions: no lesions Rashes: no rashes MDM MDM MDM Narrative Medical decision making narrative: A two-view chest x-ray shows no pulmonary abnormality, pneumothorax, or widened mediastinum. A four-view thoracic spine x-ray demonstrates an apparent wedge compression fracture of the T7 vertebral body, with no other fractures noted. I discussed the findings with the radiologist, who agrees this is consistent with an acute fracture. I also spoke with Dr. Gonzalez from Orthopedics, who recommended obtaining a CT scan. If the CT findings were unremarkable otherwise, it would be reasonable for the patient to follow up with the spine service on an outpatient basis, with appropriate precautions. The CT scan was performed. I reviewed the CT images and findings, which confirm an acute fracture of the upper end plate of T7 with approximately 10% height loss, and no other acute abnormalities or evidence of retropulsion. Based on these findings, the patient will be offered a pain control prescription, instructed to follow up on an outpatient basis, and advised to follow restrictions including no bending over, no lifting more than five pounds, and avoiding movements that significantly increase back pain. If he develops any acute neurologic symptoms, he should return to the ER immediately. Lab Data Attestation: I reviewed the patient's lab results. Labs: Laboratory Results - last 24 hr 10/23/25 09:55 Urine Color Yellow Urine Clarity Cloudy Urine pH 7.0 Ur Specific [place] 1.010 Urine Protein 15 H Urine Glucose (UA) Normal Urine Ketones Negative Urine Occult Blood Negative Urine Nitrite Negative Urine Bilirubin Negative Urine Urobilinogen Normal Ur Leukocyte Esterase Negative Urine RBC 0 SEEN Urine WBC 0 SEEN Ur Squamous Epith Cells 0 SEEN Amorphous Sediment 2+ PHOS Urine Bacteria 0 SEEN Urine Mucus 0 SEEN Radiography Diagnostic Testing: Clinical Impression(s) from Imaging Studies Thoracic Spine X-Ray 10/23/25 09:25 IMPRESSION: Unchanged appearing mild anterior wedging of T7. Mild spondylosis and dextroscoliosis again identified. Reading [facility] Chest X-Ray 10/23/25 09:26 IMPRESSION: No pleural effusion or pneumothorax is noted. Lungs appear clear. The cardiomediastinal silhouette is within the normal range, and unchanged. Mild thoracic spine degenerative changes are noted. Mild wedge compression (from the superior endplate) of a midthoracic vertebral body is seen, without apparent subluxation. Reading Location: [facility] 10/23/25 10:28 IMPRESSION: Acute fracture at the upper endplate of T7 with 10% height loss. No retropulsion. No other acute fractures. Reading Location: [facility] Management Discussion w/another healthcare provider: Cancer Genetic Counselor (jas [email or web address]) and Radiologist Discharge Plan Triage Chief Complaint: Fall ED Provider: Anand Knott Dx/Rx/DC Orders Clinical Impression: Closed traumatic compression fracture of T7 vertebra, Accidental fall on or from stairs or steps Instructions: Compression Fx Prescriptions: New tramadol 50 mg tablet 50 mg PO Q6H PRN (Reason: pain) 3 Days Qty: 12 0RF No Action Xifaxan 550 mg tablet 550 mg PO TID Primary Care Provider: Taye Mejia Referrals: Norman Mariscal MD [Med Staff - Active Staff, Orthopedics] - As soon as possible Referral Note: call for appt Activity Restrictions/Additional Instructions: - Avoid bending at your waist, do not lift more than 5 pounds, and limit any movements that significantly worsen your back pain. - Schedule an outpatient appointment with a account development specialist for further evaluation and management. - If you develop any new numbness, weakness, or other neurologic changes, go to the emergency department immediately. Print Language: Upper Sorbian Disposition Disposition: Home, Self Care Discharge Date/Time: 10/23/25 11:36
[2025-10-23] MEDS: Ketorolac 30 MG/ML Syringe IM (09:37)
[2025-10-23 10:01] LABS: Mucous, Urine 0 SEEN /hpf (<or=2+); Red Blood Cells-Urine 0 SEEN /hpf (0-5); Squamous Epithelial Cells - UA 0 SEEN /hpf (0-5)
[2025-10-23 10:02] VITALS: BP 128/75; PULSE 88; RESP 15; O2SAT 100
[2025-10-23 10:23] LABS: Color, Urine Yellow (Yellow); Glucose, Dipstick Normal (Normal); Ketone-Dipstick Negative (Negative); Leukocyte Esterase-Dipstick Negative /ul (Negative); Nitrite-Dipstick Negative (Negative); Occult Blood-Urine Negative /ul (Negative); Protein-Dipstick 15 mg/dl (Negative); Specific Gravity, Urine 1.010 (1.002-1.030); Urine Bilirubin Dipstick Negative (Negative)
--- NOTE | 2025-10-23 10:28 | CT_ITS ---
PROCEDURE: SPINE THORACIC WITHOUT CONTRAS 10/23/2025 REASON FOR EXAM: TRAUMA/FRACTURE TECHNIQUE: Procedure Code: CTSPTH Modality: CT Procedure: SPINE THORACIC WITHOUT CONTRAS Coronal and Sagittal reconstruction series were provided. One or more dose reduction techniques were used (e.g., Automated exposure control, adjustment of the mA and/or kV according to patient size, use of iterative reconstruction technique). RADIATION DOSE SUMMARY: CTDlvol: 18.67 mGy DLP: 756.94 mGycm COMPARISON: None. FINDINGS: Alignment: Normal alignment. Bones: Acute fracture at the upper endplate of T7 with 10% height loss. No retropulsion. No other acute fractures. Soft Tissues: The visualized lungs are clear. No additional acute findings. CT/Spine Thoracic without Contras IMPRESSION: Acute fracture at the upper endplate of T7 with 10% height loss. No retropulsio n. No other acute fractures. Reading Location: [id number]
[2025-10-23 10:58] VITALS: BP 126/79; PULSE 82; RESP 16; O2SAT 97
[2025-10-23 11:25] VITALS: BP 135/98; PULSE 75; RESP 16; TEMP 36.6; O2SAT 99
== END 2025-10-23 11:36 | disposition home or self-care (01) ==
PROVIDERS: Emergency Provider Emergency Medicine; PCP Family Medicine; Visit Provider Emergency Medicine
DX: S22.060A Wedge compression fracture of T7-T8 vertebra, initial encounter for closed fracture (principal); M54.9 Dorsalgia, unspecified; Z87.891 Personal history of nicotine dependence; R06.00 Dyspnea, unspecified; K21.9 Gastro-esophageal reflux disease without esophagitis; J45.909 Unspecified asthma, uncomplicated; Z79.899 Other long term (current) drug therapy; W01.0XXA Fall on same level from slipping, tripping and stumbling without subsequent striking against object, initial encounter
CPT/HCPCS: 71046; 72070; 72128; 81001; 96372; 99282